=== PATIENT | female | born 1995 | race Caucasian/White ===

== ENCOUNTER 2024-01-06 15:48 | Outpatient (CLI) | payer OTHER, SELFPAY ==
[2024-01-07 13:39] LABS: Strep B DNA Probe POSITIVE (Negative)
[2024-01-07 15:28] LABS: Strep B Susceptibility Needed? No
== END 2024-01-06 15:49 | disposition home or self-care (01) ==
LOC: NFLDREF 15:48
PROVIDERS: PCP Family Medicine; Visit Provider Obstetrics & Gynecology
DX: Z34.93 Encounter for supervision of normal pregnancy, unspecified, third trimester (principal)
CPT/HCPCS: 87081; 87653

== ENCOUNTER 2024-01-29 23:28 | Inpatient (IN) | payer OTHER, BC, SELFPAY ==
[2024-01-29 22:29] VITALS: BP 130/79; PULSE 88; RESP 16; TEMP 36.8
[2024-01-29 23:03] LABS: Amnisure Rom* Negative
--- NOTE | 2024-01-29 23:23 | P.LDBA_ITS ---
Subjective History of Present Illness Time Seen by Provider: 23:23 Date Seen: 01/29/24 Narrative: Patient is being admitted to Labor and Delivery for rule out labor. She is a 28 year old at 39.4 weeks gestation. Her full history and physical was dictated by Dr. Ceron on 01/13/24. Please see this for details. She reports she thinks she has LOF around 11 am and has been anand more throughout the day so she came in for an evaluation. Amnisure was negative but per RN check she is 3/80/0. NST: 120 bpm, moderate variability, +accel, neg decl [place]: Q10-15 minutes Discussed with patient that she has made cervical change since being seen by ALFONZO Negro on 01/27/24 (1/60/-1, anterior and soft). However, she is anand very little so I do not think she is in labor yet. Gave patient option of going home and awaiting spontaneously labor or staying here for induction. Eduarda strongly desired induction. She reports that she's been uncomfortable for so long and has been requesting cervical checks since 37 weeks due to it. Was not aware she could have elective IOL after 39 weeks or would've opted. We discussed that her cervix is favorable so will start pitocin overnight to increase her contraction frequency and strength. She is happy with this plan. Specific Issues/Plans Transfer of care from [place] at 31 weeks - H&P completed at initial visit on 12/04 - heart/lungs examined at visit on 01/06/2024 Vu #Impaired glucose tolerance - 1 hour 154 > 3 hour of 79 / 156 / 156 /138 #Vulvovaginal candidiasis - 2 episodes in , last 11/16/23 labs: New OB on 07/25: - BT A+, negative antibody screen - Hemoglobin 11.5, platelets 280 - Varicella/rubella immune - RPR, hepatitis-B, HIV and gonorrhea/chlamydia negative - Pap NIL Mid labs on 11/16: - hemoglobin 11.3 - 1 hour Glucola: 154 - 3 hour glucose tolerance test: 79/156/156/138 Dating by LMP consistent with 1st trimester ultrasound Anatomy scan within normal limits aside from inability to identify three-vessel cord and some cardiac view, status post [facility] consult with repeat ultrasound confirming three-vessel cord and normal cardiac anatomy OB - Problem Based A/P Additional Plan (1) : Status: Acute Plan Induction * SVE 80/-1, soft, midposition * [place]: 10-15 minutes * Admission labs pending * Plan: will induce with titrating Pitocin OB Exam Physical Exam Vital signs: Temp Pulse Resp BP 98.2 F 88 16 130/79 01/29/24 22:29 01/29/24 22:29 01/29/24 22:29 01/29/24 22:29 Narrative: Physical exam: General: No acute distress Psych: Alert and oriented x4, full affect HEENT: Normocephalic, atraumatic Lungs: Unlabored breathing Abdomen: Gravid, soft, no tenderness, rebound, or guarding Skin: No lesions or rashes Lower extremities: No edema or erythema Pelvic exam: 80/-1, soft, mid position
[2024-01-29 23:38] VITALS: BMI 35.4
[2024-01-30] VITALS (81 sets, daily range): BP systolic 112–182; BP diastolic 63–101; PULSE 67–122; RESP 12–20; TEMP 32–37.3; O2SAT 97–100
[2024-01-30] MEDS: OXYTOCIN 30 unit/500 ML in NS 30 UNIT/500 ML BAG IVPB (00:56)
[2024-01-30] MEDS: AMPICILLIN 2 GM in 0.9 % SODIUM CHLORIDE Mini-bag 100 ML IVPB (00:57)
[2024-01-30] MEDS: LACTATED RINGERS 1000 ML 1,000 ML 125 ML IV ×2 (00:57→07:02)
[2024-01-30 03:13] LABS: Basophils Absolute Auto 0.02 K/uL (0.00-0.30); Basophils Percent Auto 0.3 % (0.0-3.0); Eosinophils Absolute Auto 0.03 K/uL (0.00-0.50); Eosinophils Percent Auto 0.4 % (0.0-7.0); Hematocrit 35.5 % (33.0-51.0); Hemoglobin* 11.9 gm/dL (12.0-16.0); Immature Granulocytes Abs Auto 0.04 K/uL (0.00-0.30); Immature Granulocytes Pct Auto 0.5 %; Lymphocytes Absolute Auto 1.49 K/uL (0.90-2.90); Lymphocytes Percent Auto 20.2 % (20-44); Mean Corpuscular HGB Conc 34 gm/dL (32-36); Mean Corpuscular Hemoglobin 30 pg (26-34); Mean Corpuscular Volume 88 fL (80-100); Monocytes Percent Auto 6.6 % (0.0-11.0); Neutrophils Absolute Auto 5.31 K/uL (1.7-7.0); Platelet Count* 256 K/uL (140-440); Red Blood Count 4.04 m/uL (4.00-5.20); White Blood Count* 7.38 K/uL (4.50-11.00)
[2024-01-30 03:22] LABS: Slide Review Reflex No
[2024-01-30] MEDS: AMPICILLIN 1 GM in 0.9 % SODIUM CHLORIDE Mini-bag 100 ML IVPB ×4 (04:21→16:41)
[2024-01-30] MEDS: ONDANSETRON 2 MG/ML inj 4 MG IV ×3 (06:25→20:46)
[2024-01-30] MEDS: ROPIVACAINE 0.2% 100 ml 100 ML 12 MG EPIDURAL ×2 (06:55→14:26)
--- NOTE | 2024-01-30 07:19 | P.ANBPRC_ITS ---
[facility] Social History What is your current living situation?: I presently have a place to live Problems where you live: no known problems In the past 12 months, utilities in danger of being shut off: no In past 12 months, lack of transportation kept you from medical appts, meetings, work, or getting things needed for daily living: no How hard is it for you to pay for the very basics like food, housing, medical care, and heating: not applicable In the past 12 mos, have been you worried that your food would run out before you had money to buy more?: never true In the past 12 mos, the food you bought just didn't last and you didn't have money to buy more?: never true Are you following a diet prescribed by a doctor: No Are you following a special diet: No Smoking Status: Never smoker Do you use any of these nicotine containing products: None Second hand tobacco smoke exposure: No How often does anyone, including family, friends and others, physically hurt you : never How often does anyone, including family, friends and others, insult or talk down to you: never How often does anyone, including family, friends and others, threaten you with harm: never How often does anyone, including family, friends and others, scream or curse at you: never Little interest or pleasure in doing things: not at all Feeling down, depressed, or hopeless: not at all Meds Home Medications and Allergies Home Medications Medication Instructions Recorded Confirmed Type Bacillus coagulans 250 million 1 cell PO DAILY 12/04/23 01/29/24 History cell chewable tablet (Digestive Advantage Probiotic Gummy) [id number] 400 mcg-om3 35 mg-dha 25 1 tab PO DAILY 12/04/23 01/29/24 History mg-epa 5 mg-fish oil chewable tablet Up & Up Immune Support 2 tab PO DAILY 12/04/23 01/29/24 History ferrous sulfate 325 mg (65 mg 325 mg PO QDAY 12/04/23 01/29/24 History iron) tablet (Feosol) vits no.126-ferrous fum 1 tab PO QDAY 01/06/24 01/29/24 History 28 mg iron-folic acid 800 mcg tablet (Classic ) Allergies Allergy/AdvReac Type Severity Reaction Status Date / Time No Known Drug Allergies Allergy Verified 01/27/24 13:31 Results Labs Labs: Laboratory Results - last 24 hr 01/29/24 01/29/24 01/30/24 22:31 22:40 02:55 WBC 7.38 RBC 4.04 Hgb 11.9 L Hct 35.5 MCV 88 MCH 30 MCHC 34 RDW Coeff of Jett 13.0 Plt Count 256 Neut % (Auto) 72.0 Lymph % (Auto) 20.2 [place] % (Auto) 6.6 Eos % (Auto) 0.4 Baso % (Auto) 0.3 Neut # (Auto) 5.31 Lymph # (Auto) 1.49 [place] # (Auto) 0.50 Eos # (Auto) 0.03 Baso # (Auto) 0.02 Abs Immat Gran (auto) 0.04 Imm/Tot Granulo (auto) 0.5 Membrane Rupture Cancelled Negative Blood Type A Positive Antibody Screen NEGATIVE Vital Signs Vital Signs: Last Vital Signs Temp 97.9 F 01/30/24 05:02 Pulse 78 01/30/24 07:18 Resp 16 01/30/24 05:02 BP 123/76 01/30/24 07:18 Pulse Ox 98 01/30/24 07:16 Weight: 82.372 kg Height: 152.4 cm Anesthesia Procedures Epidural Insertion Patient Location: OB Start Time: 06:30 Stop Time: 07:30 Start Date: 01/30/24 Stop Date: 01/30/24 Reason for Block: procedure for pain Patient Position: sitting Performed By: Caleb Garcia Preanesthetic Checklist: IV checked, risks and benefits discussed, surgical consent, monitors and equipment checked, pre-op evaluation, timeout performed and anesthesia consent Prep: chlorhexidine gluconate Monitoring: blood pressure monitoring, continuous pulse oximetry and heart rate Approach: midline Vertebral Space: lumbar (1-5) Epidural Technique: EARLINE saline Needle Type: Tuohy needle Injection Technique: continuous catheter Needle gauge: 17 Needle Length (cm): 10 cm Needle Insertion Depth (cm): 6 Catheter Gauge: 19 Catheter Type: multi-orifice Catheter at skin depth (cm): 12 Test Dose Result: negative and lidocaine 1.5% with epinephrine 1 to 200,000
[2024-01-30] MEDS: LACTATED RINGERS 1000 ML 1,000 ML 124 ML IV ×2 (08:19→16:52)
--- NOTE | 2024-01-30 10:32 | P.OBPN_ITS ---
Subjective Date Seen: 01/30/24 Narrative: Eduarda is a 28 yo woman at 39 4/7 weeks' gestation here for elective IOL. She had been on pitocin for augmentation since early AM, currently at 13 mU/min. She had an epidural this morning. She is GBS positive, and has been on ampicillin since admission. Objective Vital Signs: Last Vital Signs Temp 89.6 F L 01/30/24 07:24 Pulse 75 01/30/24 10:26 Resp 16 01/30/24 07:24 BP 126/80 01/30/24 10:26 Pulse Ox 98 01/30/24 07:21 Comments: Gen - NAD Abd - EFW 8 lbs by Ronaldo's SVE - / - AROM for clear fluid Pelvic Exam Dilation (cm): 6 Effacement (%): 90 Station: -2 Contractions Monitor mode: External Contraction Frequency: Q2-4 min Contraction pattern: Regular Pitocin Rate (mU/min): 13 Assessment Assessment: active labor Amniotic Membrane Status: AROM Status: Category l Heart Rate Baseline: 120 Residential Variability: Moderate (6-25) Monitor Accelerations: Present Monitor Decelerations: None Tracing Comments: Category I Labor Progress: Active labor Maternal Status: Reassuring status GBS positive, on ampicillin Plan Plan: Continuous monitoring Continue pitocin augmentation Reassess 2 hrs or sooner
--- NOTE | 2024-01-30 14:44 | P.OBPN_ITS ---
Subjective Time Seen by Provider: 13:30 Date Seen: 01/30/24 Narrative: Eduarda is a 28 yo woman at 39 4/7 weeks' gestation here for elective IOL. She had been on pitocin for augmentation since early AM, currently at 13 mU/min. She had an epidural this morning. She is GBS positive, and has been on ampicillin since admission. She is having increased pain with contractions. Objective Vital Signs: Last Vital Signs Temp 97.8 F 01/30/24 12:00 Pulse 79 01/30/24 14:42 Resp 16 01/30/24 12:00 BP 146/82 H 01/30/24 14:42 Pulse Ox 98 01/30/24 07:21 Comments: Gen - NAD SVE - 7.5 / 100 / -1 Contractions Monitor mode: External Contraction Frequency: Q2-4 min Contraction pattern: Regular Pitocin Rate (mU/min): 22 Assessment Assessment: active labor Amniotic Membrane Status: AROM Status: Category l Heart Rate Baseline: 120 Front End Application Developer Variability: Moderate (6-25) Monitor Accelerations: Present Monitor Decelerations: None Tracing Comments: Category I Labor Progress: Active labor, transitional phase Maternal Status: Reassuring status GBS positive, on ampicillin Plan Plan: Continuous monitoring Continue pitocin augmentation Reassess 2 hrs or sooner
--- NOTE | 2024-01-30 15:01 | P.OBPN_ITS ---
Subjective Time Seen by Provider: 13:30 Date Seen: 01/30/24 Narrative: Eduarda is a 28 yo woman at 39 4/7 weeks' gestation here for elective IOL. She had been on pitocin for augmentation since early AM, currently at 22 mU/min. She had an epidural this morning. She is GBS positive, and has been on ampicillin since admission. She is having pelvic pressure and vomiting. Objective Vital Signs: Last Vital Signs Temp 97.8 F 01/30/24 12:00 Pulse 90 01/30/24 14:56 Resp 16 01/30/24 12:00 BP 149/89 H 01/30/24 14:56 Pulse Ox 98 01/30/24 07:21 Comments: Gen - NAD SVE -rim / 100 / +1.5, TRACY Contractions Monitor mode: External Contraction Frequency: Q2-4 min Contraction pattern: Regular Pitocin Rate (mU/min): 22 Assessment Assessment: active labor Amniotic Membrane Status: AROM Status: Category l Heart Rate Baseline: 120 Rubber Goods Tester Water Variability: Moderate (6-25) Monitor Accelerations: Present Monitor Decelerations: None Tracing Comments: Category I Labor Progress: Active labor, transitional phase. Progressing normally. Maternal Status: Reassuring status GBS positive, on ampicillin Plan Plan: Continuous monitoring Continue pitocin augmentation Reassess within the hour for urge to push.
[2024-01-30 16:53] LABS: Basophils Percent Auto 0.1 % (0.0-3.0); Hematocrit 39.7 % (33.0-51.0); Hemoglobin* 13.3 gm/dL (12.0-16.0); Immature Granulocytes Pct Auto 0.6 %; Lymphocytes Percent Auto 6.5 % (20-44); Mean Corpuscular HGB Conc 34 gm/dL (32-36); Mean Corpuscular Hemoglobin 29 pg (26-34); Mean Corpuscular Volume 87 fL (80-100); Monocytes Percent Auto 5.1 % (0.0-11.0); Neutrophils Percent Auto 87.7 % (42.0-72.0); Platelet Count* 255 K/uL (140-440); RDW Coefficient of Variation % 12.9 % (11.5-15.5); Red Blood Count 4.57 m/uL (4.00-5.20); White Blood Count* 16.02 K/uL (4.50-11.00)
[2024-01-30 16:56] LABS: Slide Review Reflex No
[2024-01-30 17:09] LABS: Alanine Aminotransferase* 29 U/L (4-35); Aspartate Amino Transferase* 31 U/L (12-35); Blood Urea Nitrogen* 8 mg/dL (5-24); Creatinine* 0.5 mg/dL (0.5-1.5); Est. Creatinine Clearance* 120.32; Estimated Glomerular Filt Rate 131 ml/min
[2024-01-30] MEDS: miSOPROStoL 800 MCG/4 TABLET PR (19:40)
[2024-01-30] MEDS: LOPERAMIDE HCL 2 MG CAPSULE 4 MG PO (19:53)
[2024-01-30] MEDS: TRANEXAMIC ACID 100 MG/ML INJ 1000 MG IV (19:54)
--- NOTE | 2024-01-30 19:56 | W.PM.VAGDEL1 ---
Procedure Delivery date: 01/30/24 Procedure Done: [employer] Procedure Details: The patient is a 28 year-old G 1 P 0 woman admitted on 01/30/2024 at 39 Weeks, 3 Days gestation for elective induction of labor.? Cervical exam on admission was 3 cm/80 % effaced/-1 station with membranes intact in cephalic presentation.? heart rate demonstrated baseline 120 bpm with moderate variability, positive accelerations, no decelerations; a category 1 tracing.? She had Pitocin for induction of labor. AROM occurred at 10:22 a.m. with clear fluid. ? Labor Analgesia:? Epidural Labor onset:? 8:20 a.m. ? Complete:? 4:37 p.m. ? Pushing:? 4:54 p.m. ? heart tones during second stage were reassuring with only intermittent brief variable deceleration until the infant was , at which point there were prolonged, deep variable decelerations. Eduarda did develop mildly elevated blood pressures during active labor. HELLP labs were normal. ? At 7:20 p.m. a viable male infant delivered in vertex AZIZA presentation over small second-degree perineal laceration via spontaneous vaginal delivery.? was placed on maternal abdomen.? Cord was clamped and cut after a 30-60 second delay.? Nose and mouth were bulb suctioned.? weight pending.? 3 at 1 minute, 7 at 5 minutes and 9 at 10 minutes.? did require PPV for short period. Shoulder dystocia: No.? Nuchal cord: Yes, x1, reduced prior to delivery the 's body. ? Placenta delivered spontaneously and complete at 7:33 p.m. with a 3 vessel cord. ? Mother and infant were stable after delivery. ? Lacerations:? Small second-degree perineal laceration and bilateral labial laceration, repaired with 2 0 and 3 0 Vicryl after infiltration with a small amount of 1% lidocaine. ? She went on to have an immediate hemorrhage of 931 mL by QBL. She was treated with IV Pitocin, uterine massage, 800 mcg of rectal misoprostol, and a single dose of Hemabate. ? Sponge and needles counts are correct.
[2024-01-30] MEDS: CARBOPROST TROMETHAMINE 250 MCG/ML INJ IM (20:37)
[2024-01-30] MEDS: ACETAMINOPHEN 500 MG TABLET 1000 MG PO (20:38)
[2024-01-31] VITALS (7 sets, daily range): BP systolic 113–144; BP diastolic 73–86; PULSE 82–95; RESP 12–16; TEMP 36.6–36.9; O2SAT 97
[2024-01-31] MEDS: IBUPROFEN 600 MG TABLET PO ×3 (00:51→13:19)
--- NOTE | 2024-01-31 04:00 | PM.ANPOST ---
Post Anesthesia Note Post Anesthesia Note Patient seen: Inpatient Respiratory Status: adequate Cardiovascular Status: adequate Mental Status: baseline Pain: adequate Temp: baseline Anesthetic awareness: N/A Complications: none Follow care: none
[2024-01-31] MEDS: ACETAMINOPHEN 500 MG TABLET 1000 MG PO ×3 (04:42→23:57)
[2024-01-31 07:11] LABS: Hematocrit 32.5 % (33.0-51.0); Hemoglobin* 10.9 gm/dL (12.0-16.0); Mean Corpuscular HGB Conc 34 gm/dL (32-36); Mean Corpuscular Hemoglobin 30 pg (26-34); Mean Corpuscular Volume 88 fL (80-100); Platelet Count* 278 K/uL (140-440); Red Blood Count 3.68 m/uL (4.00-5.20); White Blood Count* 16.39 K/uL (4.50-11.00)
[2024-01-31 07:18] LABS: Slide Review Reflex No
[2024-01-31 07:23] LABS: Alanine Aminotransferase* 29 U/L (4-35); Aspartate Amino Transferase* 45 U/L (12-35); Blood Urea Nitrogen* 11 mg/dL (5-24); Creatinine* 0.6 mg/dL (0.5-1.5); Est. Creatinine Clearance* 100.27; Estimated Glomerular Filt Rate 125 ml/min
[2024-01-31] MEDS: DOCUSATE SODIUM 100 MG CAPSULE PO (08:19)
--- NOTE | 2024-01-31 09:02 | PM.OBPNVD1 ---
OB - PN:Subj Subjective Date Seen: 01/31/24 Interval history: Eduarda is a 28-year-old G1 now P 1-0-0-1 woman who is status post normal spontaneous vaginal delivery at term on 01/30/2024. She had small second-degree perineal laceration and bilateral labial lacerations. She had an immediate hemorrhage, successfully managed with uterotonics. She is diagnosed with mild gestational hypertension during her intrapartum course. She has been normotensive since shortly after the of her son. Narrative: This morning, Eduarda has no complaints. She is working on her son. She denies any heavy bleeding. Pain is well controlled. OB - PN: Obj Exam Physical Exam: Vital signs: Temp Pulse Resp BP Pulse Ox O2 Del Method 97.9 F 84 16 121/78 97 Room Air 01/31/24 08:26 01/31/24 08:26 01/31/24 08:26 01/31/24 08:26 01/31/24 08:26 01/31/24 08:26 Blood pressures have normalized since shortly after the of her son. Narrative: General: Pleasant, no acute distress Heart: Regular rate and rhythm, no murmur or gallop Lungs: Clear to auscultation bilaterally Abdomen: Soft, nontender, fundus well below umbilicus Lower extremities: No edema or erythema OB - PN: Obj Data Labs Labs: Laboratory Results - last 24 hr 01/30/24 01/31/24 16:48 06:30 WBC 16.02 H 16.39 H RBC 4.57 3.68 L Hgb 13.3 10.9 L Hct 39.7 32.5 L MCV 87 88 MCH 29 30 MCHC 34 34 RDW Coeff of Jett 12.9 Plt Count 255 278 Neut % (Auto) 87.7 H Lymph % (Auto) 6.5 L Patrick % (Auto) 5.1 Eos % (Auto) 0.0 Baso % (Auto) 0.1 Neut # (Auto) 14.00 H Lymph # (Auto) 1.00 Patrick # (Auto) 0.80 Eos # (Auto) 0.00 Baso # (Auto) 0.00 Abs Immat Gran (auto) 0.10 Imm/Tot Granulo (auto) 0.6 BUN 8 11 Creatinine 0.5 0.6 Estimated Creat Clear 120.32 100.27 Estimated GFR 131 125 AST 31 45 H ALT 29 29 OB - PN: A/P Delivery Assessment and Plan (1) Normal spontaneous vaginal delivery: Status: Acute (2) hemorrhage: Status: Acute Assessment and Plan: With subsequent mild anemia. Blood loss currently within normal ranges. Anemia is quite mild. We will begin ferrous sulfate. (3) Anemia associated with acute blood loss: Status: Acute (4) Gestational hypertension: Status: Acute Assessment and Plan: Without severe features, developing intrapartum. Her AST is mildly elevated today, but her blood pressures have normalized since shortly after the of her son last night. She will stay inpatient until tomorrow, and we will continue to monitor her blood pressures. Plan day: 1 Plan: routine care
[2024-01-31] MEDS: FERROUS SULFATE 325 MG TABLET 650 MG PO (13:19)
[2024-01-31 14:23] LABS: Rapid Plasma Reagin (RPR) Non Reactive (Non Reactive)
[2024-02-01 00:05] VITALS: BP 118/80; PULSE 84; RESP 12; TEMP 36.6
--- NOTE | 2024-02-01 08:04 | PM.OBDSVD1 ---
DS: Providers Provider Date Seen: 02/01/24 Date of admission: 01/29/24 23:28 Primary care physician: Christiano Khoury MD Admitting Clinician: Yesi Pop MD Consults: 01/31/24 13:48 Consult to Dispatcher Chief [employer] [CONS] Routine Comment: RN concerned for financial status of mom and dad. Reason for Consult:: Social Service Consult Attending Physician on discharge: Ping Negro CNM DS: Diagnosis Discharge Diagnosis (1) Gestational hypertension: Status: Acute (2) Normal spontaneous vaginal delivery: Status: Acute Exam Narrative: Exam Narrative: GENERAL APPEARANCE:? normal affect, alert, no distress MOOD:? appropriate CHEST:? clear to auscultation HEART:? regular rate and rhythm ABDOMEN:? soft, non-tender the uterine fundus is at Umbilicus, Midline and is appropriate for the stage of recovery. PERINEUM:? mild edema of the perineum, there is a Perineal Laceration,?2nd degree, that is healing well. EXTREMITIES:? normal and no edema Const: Vital Signs, click to edit/add: Vital Signs - 24 hr 01/31/24 08:26 01/31/24 13:23 01/31/24 15:02 Temperature 97.9 F 97.8 F Pulse Rate [Blood Pressure Cuff] 84 84 84 Respiratory Rate 16 16 Blood Pressure [Le ft Arm] 121/78 117/81 113/76 Pulse Oximetry 97 97 Oxygen Delivery Me thod Room Air 01/31/24 18:20 01/31/24 19:37 02/01/24 00:05 Temperature 97.9 F 98.3 F 97.8 F Pulse Rate [Blood Pressure Cuff] 82 84 84 Respiratory Rate 16 16 12 Blood Pressure [Le ft Arm] 123/85 144/86 H 118/80 Pulse Oximetry Oxygen Delivery Me thod Room Air Documenting provider has reviewed patient's vital signs: yes OB - DS: Summary Hospital Course Hospital Course: Eduarda is a 28 y.o. G 1 P 1 who was admitted to [facility] for induction of labor. ?She had a NVD that was complicated by hemorrhage. The patient feels well. ?The pain is well controlled with current medications. ?She has no new complaints. ?She is breast feeding and reports things are going well. the patient has done well.? Vitals have been stable.? She has remained afebrile.? Has a good appetite, is tolerating a general diet. ?She is voiding without difficulty.? She is passing gas and has not had a bowel movement.? She is ambulating and denies any dizziness.? Has small amount of rubra lochia. She is not sure their plan for prevention. Problems: mild anemia plan: Discharge home with baby. Follow up in 2 weeks and 6 weeks. , may see if needed Hgb 10.9. Continue home iron supplement GHTN diagnosed by elevated BP greater than 4 hours apart Labs WNL or stable with trending Discharge home with BP cuff if does not already have one Follow up in 3-5 days Call for signs/symptoms of preeclampsia Peripartum Data delivery method: Vaginal Laceration description: Perineal - 2nd Degree complications: none [place] Gender: Male Discharge Plan: Home Status at Discharge Functional status at discharge: independent ambulation Overall status at discharge: patient is progressing back to baseline Time Spent with Patient Time attestation: Total time spent providing and/or coordinating discharge services: Time spent: Less than 30 minutes Discharge Plan Discharge Disposition: Home, Self-Care Date of Admission: 01/29/24 23:28 Attending Provider on Discharge: Ping Negro Primary Care Provider: Christiano Khoury Condition: Stable Anticipated Discharge Date/Time: 02/01/24 12:00 Discharge Medications: New acetaminophen 500 mg Tablet 1,000 mg PO Q6H PRNQty: 0 0RF docusate sodium 100 mg Capsule 100 mg PO DAILY Qty: 90 0RF ibuprofen 600 mg Tablet 600 mg PO Q6H PRNQty: 60 0RF Continued [id number]-[id number]-aayb oil 400 mcg-35 mg -25 mg-5 mg tablet,chewable 1 tab PO DAILY Digestive Advantage Prob Gummy 250 million cell tablet,chewable 1 cell PO DAILY ferrous sulfate [Feosol] 325 mg (65 mg iron) tablet 325 mg PO QDAY Up & Up Immune Support capsule 2 tab PO DAILY Patient Comments: Gummies Classic 28 mg iron- 800 mcg tablet 1 tab PO QDAY Discharge Orders: Discharge Order (Routine); Ordered 02/01/24 Ordered By: Ping Negro Patient Education: OB High Blood Pressure DC, OB Over the Counter Medication Information, OB Vaginal/Breast Feeding Additional Instructions: Discharge instructions were reviewed with the patient including signs and symptoms of infection and home going medications Nothing vaginally for 6 weeks: no tampons or intercourse Off Work or School for 6 weeks Follow Up [facility] for a BP check?3-5 Call with BP greater than or equal to 160/110 2-week visit: discuss feeding concerns, review control options and screen for anxiety/depression. 6-week visit for an annual exam. consultation services are available to all mothers and babies for the first year after delivery.? To make an appointment, please call [phone]. Activity Level: Activity as Tolerated Discharge Diet: Regular Follow Up Appointments: [facility] [Provider Group] Forms: [employer] Info Instructions
[2024-02-01] MEDS: DOCUSATE SODIUM 100 MG CAPSULE PO (08:38)
[2024-02-01 08:39] VITALS: BP 121/79; PULSE 84; RESP 16; TEMP 36.3
--- NOTE | 2024-02-01 12:05 | PC.SOCIAL ---
Received a social work referral. Met with pt in room prior to discharge. Pt has stable housing, she reports she lives with her parents in a house in [place]. Pt reports that her significant other also resides with her. Pt reports she has a supportive family. Pt's mother is a [id number] mom and will assist pt with childcare at any time. Pt plans to return back to work full-time after her maternity leave is completed. Pt reports when she returns back to work pt's mother will assist with childcare. Pt has no concerns for financial assistance and is aware of area resources for [facility] if a financial concern were to arise. Pt has been in contact with [facility] office, prior to giving . Pt's income did not meet criteria to qualify for [facility] services, however, [facility] did ask pt to come back after giving as she will qualify due to not being able to work during her maternity leave. Pt is aware of where to reach out to get the [place] services started and will do so when she is discharged from [facility]. Pt reports that she has all needed baby items at home including a car seat and safe bed for baby to sleep in. Informed pt that she can reach out to social work if she has any further questions. Provided update to pt's nurse.
== END 2024-02-01 14:30 | disposition home or self-care (01) | DRG 806 ==
LOC: OB OUT 23:29 → OB 23:29
PROVIDERS: Obstetrics & Gynecology; Admitting Provider Obstetrics & Gynecology; PCP Family Medicine; Visit Provider Obstetrics & Gynecology
DX: O70.1 Second degree perineal laceration during delivery (principal); O72.1 Other immediate postpartum hemorrhage; Z37.0 Single live birth; Z3A.39 39 weeks gestation of pregnancy; O13.4 Gestational [pregnancy-induced] hypertension without significant proteinuria, complicating childbirth; O99.824 Streptococcus B carrier state complicating childbirth; O90.81 Anemia of the puerperium
CPT/HCPCS: 01967; 36415; 82565; 84112; 84450; 84460; 84520; 85025; 85027; 86592; 86850; 86900; 86901; 88307; A9270; J0290; J0665; J2371; J2405; J2795; J7120

== ENCOUNTER 2024-02-09 16:39 | Outpatient (CLI) | payer OTHER, BC, SELFPAY | END 2024-02-09 16:40 | disposition home or self-care (01) | LOC: NFLDREF 16:41 | PROVIDERS: PCP Family Medicine; Visit Provider Registered Nurse | DX: R39.15 Urgency of urination (principal) | CPT/HCPCS: 87086 ==

== ENCOUNTER 2024-02-10 14:37 | Outpatient (CLI) | payer OTHER, BC, SELFPAY ==
--- NOTE | 2024-02-10 17:00 | P.LACCB_ITS ---
Consult Note - Mom Date of Visit Date of visit: 02/10/24 taxation consultant: Jazmine Burch Visit Code: Visit Patient's Information Phone number: [phone] : 1 Para: 1 Allergies No Known Drug Allergies Allergy (Verified 02/09/24 16:07) Mother's Medical History: Medical History (Updated 02/09/24 @ 19:25 by Trini Larsen CNP) hemorrhage ?O72.1 - Other immediate hemorrhage (ICD-10) Delivery Information Delivery type: Vaginal Weeks Gestation: 39.4 Gestational Age: AGA Weight: 3.585 kg Discharge Weight: 3.45 kg Baby's Information Baby's Age at Visit: 2 weeks Baby's Provider or Clinic: Dr. Shaw Reason for Consult Reason for Consult: slow weight gain Past Experience Past Experience: No Current Frequency of Day Feedings: every 2 - 3 hours Frequency of Night Feedings: about every 4 hours Both Breasts: Yes Suck: strong Length of Time: about 20 minutes Pumping Pumping: No (hasn't pumped since the weekend) Supplementing EMB Supplement: No Formula Supplement: Yes (2 oz after every feeding) Baby Elimination Number of Wet Diapers a Day: 6 - 8 diapes in 24 hours Number of BM a Day: 4 - 6 in 24 hours Breast/Nipple Condition Breast Information: WNL Maternal Nipple Condition - Left: Common Nipple Maternal Nipple Condition - Right: Common Nipple Onsite Pre-Feed weight: 3.748 kg Post-Feed weight: 3.764 kg Milk Transferred (mL): 16 Assessments/Interventions Assessments/Interventions: Met with mom and this now 2 week old ex- term AGA baby for consult. Mom reports baby has been slow to gain weight and at the NB visit last week the doctor suggested she start supplementing after nursing. Mom reports that baby is nursing every 2 ? 3 hours during the day and about every 4 hours overnight. She offers both sides and feedings last about 20 minutes total. She stopped pumping over the weekend and has been supplementing with 2 oz formula after every feeding. When she was pumping it was BID and she got about 3 oz total each time. Breasts WNL- symmetrical with rounded lower quadrants, intramammary distance < 1.5 inches. Nipples are everted and don?t flatten or retract on compression. Mom reports a hx of blistering on her left nipple that has resolved. Baby has gained 32 grams/day since his last visit on 02/07 and is now 163 grams (5.4 oz) over BW at 2 weeks old. Mom denies any caput/cephalohematoma at delivery and state baby has equal ROM when turning his head/moving his extremities. Palate is a little high. The upper and lower frenulum appear to be WNL. Baby has a strong suck on a finger but the tongue doesn?t extend over the gumline consistently and there?s quite a bit of canoeing when the tongue lateralizes. Mom latched baby in the cross cradle position on the left side and the latch looked shallow even though mom said it was comfortable. She unlatched baby and was coached to bring baby closer to her in a tummy to tummy position. Suggested she aim his nose to her nipple and when he opened wide to bring him to her more quickly. Trying this, she reported a deeper latch. Baby wasn?t aggressive at the breast despite bothering him and trying breast compressions. After about 10 minutes he came off and mom offered the right side. Per mom he was pacifying more than nutritively suckling on this side and when he came off he had only transferred 16 ml. Mom was measured and a flange size suggested. Also demonstrated the tug of war exercise to hopefully teach him to extend his tongue out more consistently. Plan: 1.Continue nursing baby ALD or at least every 3 ? 4 hours. Offer both sides and work to get as deep a latch as possible. Keep trying the breast compressions and she can even do a tug of war when he?s at the breast if that gets him to nurse more aggressively (don?t pull so far out that the latch becomes shallow). 2.After a more aggressive nursing session, if he seems content there?s no need to supplement. After nursing sessions that are more pacifying (like in clinic today) it will be important to supplement. 3.Encouraged mom to start pumping again as this will help her keep her milk supply for longer. It will also allow her to reduce the amount of formula she uses for supplementation. Encouraged her to try and pump at least 4 times/day. 4.Try the tug of war exercise 4 ? 5 times/day. 5. Baby has f/u with PCP on 02/14 and I will f/u by phone on 02/16. Meds Home Medications and Allergies Home Medications Medication Instructions Recorded Confirmed Type Bacillus coagulans 250 million 1 cell PO DAILY 12/04/23 02/09/24 History cell chewable tablet (Digestive Advantage Probiotic Gummy) TDM15-VN 400 mcg-om3 35 mg-dha 25 1 tab PO DAILY 12/04/23 02/09/24 History mg-epa 5 mg-fish oil chewable tablet Up & Up Immune Support 2 tab PO DAILY 12/04/23 02/09/24 History ferrous sulfate 325 mg (65 mg 325 mg PO QDAY 12/04/23 02/09/24 History iron) tablet (Feosol) vits no.126-ferrous fum 1 tab PO QDAY 01/06/24 02/09/24 History 28 mg iron-folic acid 800 mcg tablet (Classic ) Allergies Allergy/AdvReac Type Severity Reaction Status Date / Time No Known Drug Allergies Allergy Verified 02/09/24 16:07
== END 2024-02-10 14:38 | disposition home or self-care (01) ==
LOC: OB LAC 14:38
PROVIDERS: PCP Family Medicine; Visit Provider Family Medicine
DX: Z39.1 Encounter for care and examination of lactating mother (principal)
CPT/HCPCS: G0463

== ENCOUNTER 2024-03-02 08:41 | Outpatient (CLI) | payer BC, SELFPAY ==
--- NOTE | 2024-03-02 10:15 | US_ITS ---
Patient: YNAI MERRITT Facility:?[facility] Patient ID:?[id number] Site Patient ID:?[id number]. Site :?[id number] Study:?US-Pelvis TRANSVAGINAL-03/02/2024 10:14:27 AM Ordering Physician:?HONORIO CORRAL Final Report: Indication: hemorrhage Technique: Ultrasound examination of the pelvis was performed. Imaging was performed transvaginally. Comparison: None Findings: The uterus measures 9.7 x 5.2 x 6.5 centimeters. There are 2 myometrial masses. One measures 2.6 x 2.5 x 2.7 centimeters. Another measures 1.2 x 1.5 x 1.5 centimeters. The larger myoma is hypoechoic suggesting necrosis. The right ovary measures 2.8 x 1.5 x 2.0 centimeters and the left ovary measures 3.4 x 2.6 x 2.7 centimeters. No ovarian mass. No adnexal mass. Normal ovarian Doppler without indication of torsion The endometrium is focally thickened especially towards the fundus measuring 1.6 centimeters. The endometrium is heterogeneous in this area and there is visible Doppler flow suggesting retained products of conception. Impression: Findings likely related to retained products of conception. Myomatous uterus. Normal ovaries and adnexa. Dictated by Murphy Palafox MD @ 03/02/2024 10:23:51 AM Signed by:?Murphy Palafox MD @03/02/2024 10:23:51 AM (Electronic Signature)
== END 2024-03-02 08:42 | disposition home or self-care (01) ==
PROVIDERS: PCP Family Medicine; Visit Provider Obstetrics & Gynecology
DX: O72.1 Other immediate postpartum hemorrhage (principal)
CPT/HCPCS: 76830; 86850; 86900; 86901

== ENCOUNTER 2024-03-03 11:57 | Day surgery (SDC) | payer BC, SELFPAY ==
[2024-03-03 11:10] VITALS: BMI 31.4
--- OUTSIDE RECORDS SUMMARY | 2024-03-03 11:59 | XMS_ITS | Referral Summary ---
Author Name Unknown Organization [facility] Address [address] [place] [address] Care Team Providers Care Milieu Coordinator Name Role Phone Unavailable Primary Care Provider Unavailabl e Source Comments Patient records contain information from all sites at [facility]. For routine questions regarding patient records, call [phone] during business hours, M-F 8:00 AM - 5:00 PM Central Time. Record requests for emergency care only can be directed to [phone] at any time.[facility] Allergies No known active allergies Medications Medication Sig Dispensed Refills Start Date End Date Status kwserlx-Mw-nwim-FA (VINATE ONE) 60 mg iron-1 mg per tablet Take 1 tablet by mouth daily. 90 tablet 3 08/20/2023 Active miconazole (MICOTIN) 2 % vaginal cream Insert 1 applicator into the vagina at bedtime. 45 g 11/16/2023 Active Active Problems Estimated Date of Delivery Comme nts Yes 02/02/2024 Based on last me nstrual period of 04/28/2023 (Exact Date) No known active problems Immunizations Name Administration Dates Next Due Tdap 11/16/2023 Social History Tobacco Use Types Packs/Day Years Used Date Smoking Tobacco: Never Smokeless Tobacco: Never Tobacco Cessation:Counseling Given: Not Answered Alcohol Use Standard Drinks/Week Comments Not Currently 0 (1 standard drink = 0.6 oz pur e alcohol) Humiliation, Afraid, Rape, and Kick questionnair e Answer Date Recorded Within the last year, have y ou been afraid of your partner or ex-partner? No 06/21/2023 Within the last year, have y ou been humiliated or emotionally abused in other ways by your partner or ex-partner? No Within the last year, have y ou been kicked, hit, slapped, or otherwise physically hurt by your partner or ex-partner? No 06/21/2023 Within the last year, have y ou been raped or forced to have any kind of sexual activity by your partner or ex-partner? No 06/21/2023 Overall Financial Resource Strain (CARDIA) Answe r Date Recorded How hard is it for you to pa y for the very basics like food, housing, medical care, and heating? Not hard at all 06/21/2023 PHQ-2 Answer Date Recorded PHQ-2 Score 1 07/22/2023 Exercise Vital Sign Answer Date Recorde d On average, how many days pe r week do you engage in moderate to strenuous exercise (like a brisk walk)? 4 days 06/21/2023 On average, how many minutes do you engage in exercise at this level? 30 min 06/21/2023 Hunger Vital Sign Answer Date Recorded Within the past 12 months, y ou worried that your food would run out before you got the money to buy more. Never true 06/21/20 Within the past 12 months, t he food you bought just didn't last and you didn't have money to get more. Never true 06/21/2023 PRAPARE - Transportation Answer Date Re corded In the past 12 months, has l ack of transportation kept you from medical appointments or from getting medications? No 05/27 In the past 12 months, has l ack of transportation kept you from meetings, work, or from getting things needed for daily living? No 06/21/2023 Depression Answer Date Recor ded PHQ-9 Total Score (max 27) 3 07/22 Nutrition Answer Date Recorded Nutrition: EVOO Fat Source Unknown 06/21 On average, how many serving s of fruits and vegetables do you eat per day (serving size is equal to 1 cup or approximately the size of a tennis ball)? 0-2 06/21/2023 Dental Answer Date Recorded Dental: Regular Dentist Yes 06/21/20 Employment Answer Date Recorded Employment status Employed and actively working without restrictions 06/21/2023 Housing Stability Answer Date Recorded What is your living situation today? I have a [facility] place to live 06/21/2023 Education Answer Date Recorded What is the highest level of school you have completed or the highest degree you have received? High school graduate 07/22/2023 Estimated Date of Delivery Comme nts Yes 02/02/2024 Based on last me nstrual period of 04/28/2023 (Exact Date) Sex and Gender Information Value Date Recorded Sex Assigned at Female 06/21/2023 8:16 PM CDT Gender Identity Female 06/21/2023 8:16 PM CDT Sexual Orientation Straight 06/21/2023 8: 16 PM CDT Last Filed Vital Signs Vital Sign Reading Time Taken Comments Blood Pressure 122/83 11/16/2023 3:23 PM ICE MAKER Pulse 93 11/16/2023 3:23 PM ICE MAKER Temperature 37.2 ??C (99 ??F) 08/20/2023 3:06 PM CDT Respiratory Rate - - Oxygen Saturation 100% 10/16/2023 2:09 PM ICE MAKER Inhaled Oxygen Concentration - - Weight 76.9 kg (169 lb 8 oz) 11/16/2023 3:23 PM ICE MAKER Height 156 cm (5' 1.42) 11/16/2023 3:23 PM ICE MAKER Body Mass Index 31.59 11/16/2023 3:23 PM ICE MAKER Plan of Treatment Not on file Procedures Procedure Name Priority Date/Time Associated Diagnosis Comments HCV AB SCRN , S Routine 07/22/2023 10:41 AM CDT Examination Normal First First Trimester (HCC) HIV-1/-2 AG AND AB SCRN, PLASMA Routine 07/22/2023 10:41 AM CDT Examination Normal First First Trimester (HCC) THINPREP SCREEN HPV REFLEX Routine 07/22/2023 9:43 AM CDT Examination Normal First First Trimester (HCC) from Last 3 Months or Most Recently Relevant to Health Maintenance Results * Hepatitis C Virus Antibody Screen (07/22/2023 10:41 AM CDT) HCV Ab Scrn , S Negative Negative 07/23/2023 8:34 AM CDT [facility] Comment:Oalfqy-mx-nbixhl rat io is <1.00. Blood (Blood, Venous) 07/22/2023 10:41 AM CDT 07/23/2023 6:54 AM CDT Kary Holguin APRN, C.N.P., M.S.N. LAB MICROBIOLOGY - BLOOD ORDERABLES [facility] [address] [place] [address] [facility] [address] [place] [address] * HIV-1/-2 Ag and Ab Scrn, Plasma (07/22/2023 10:41 AM CDT) HIV Ag/Ab Scrn, P Negative Negative 07/23/2023 4:25 AM CDT [facility] Comment: Negative result does not rule out HIV infection. If exposure to HIV infection occurred <14 days ago, contact the laboratory to request addition of HIV-1/HIV-2 RNA detection , Plasma (HPP12). HIV-1 p24 Ag Scrn, P Negative Negative 07/23/2023 4:25 AM CDT [facility] Comment: Negative result does not rule out HIV infection. If exposure to HIV infection occurred <14 days ago, contact the laboratory to request addition of HIV-1/HIV-2 RNA detection , Plasma (HPP12). HIV-1 Ab Scrn, P Negative Negative 07/23/2023 4:25 AM CDT [facility] Comment: Negative result does not rule out HIV infection. If exposure to HIV infection occurred <14 days ago, contact the laboratory to request addition of HIV-1/HIV-2 RNA detection , Plasma (HPP12). HIV-2 Ab Scrn, P Negative Negative 07/23/2023 4:25 AM CDT [facility] Comment: Negative result does not rule out HIV infection. If exposure to HIV infection occurred <14 days ago, contact the laboratory to request addition of HIV-1/HIV-2 RNA detection , Plasma (HPP12). Blood (Blood, Venous) 07/22/2023 10:41 AM CDT 07/22/2023 6:24 PM CDT Kary Holguin APRN, C.N.P., M.S.N. LAB MICROBIOLOGY - BLOOD ORDERABLES Performing Organization Address [facility] Co de Phone Number [facility] [address] [place] [address], [place] [facility] [place] [address] [place] [address] * ThinPrep Screen HPV Reflex (07/22/2023 9:43 AM CDT) 07/24/2023 3:25 PM CDT [facility] Report electronically signed by JESUS Alfonso (ASCP) I verify that I have examined all relevant slides/materials for the specimen(s) and rendered or confirmed the diagnosis. 07/24/2023 3:25 PM CDT [facility] Gross Description Received specimen in a ThinPrep vial. 07/24/2023 3:25 PM CDT [facility] Pap Test Source Cervical/Endocervi lucila 07/24/2023 3:25 PM CDT [facility] Hormone Therapy/Contracep tives None/Not known 07/24/2023 3:25 PM CDT [facility] Interpretation Cervical/Endocervi lucila ??(ThinPrep): Satisfactory for Evaluation Negative for Intraepithelial Lesion or Malignancy 07/24/2023 3:25 PM CDT [facility] Thin Prep Vial (Cervix/Endocerv ix) 07/22/2023 9:43 AM CDT 07/23/2023 6:25 AM CDT Kary Holguin APRN, C.N.P., M.S.N. LAB PAP PATHDX ORDERABLES Performing Organization Address City/[facility]/ZIP Co de Phone Number [facility] [address] [place] [address], [place] [facility] [address] [address] from Last 3 Months or Most Recently Relevant to Health Maintenance
--- OUTSIDE RECORDS SUMMARY | 2024-03-03 11:59 | XMS_ITS | Clinical Summary ---
Author Name Unknown Organization [facility] Address [address] [place] [address] Care Team Providers Care Transfer Station Operator Name Role Phone Unavailable Primary Care Provider Unavailabl e Source Comments Patient records contain information from all sites at [facility]. For routine questions regarding patient records, call [phone] during business hours, M-F 8:00 AM - 5:00 PM Central Time. Record requests for emergency care only can be directed to [phone] at any time.[facility] Allergies No known active allergies Medications Medication Sig Dispensed Refills Start Date End Date Status aytwhjz-Ts-esqt-FA (VINATE ONE) 60 mg iron-1 mg per [...] Name Administration Dates Next Due Tdap 11/16/2023 Family History Medical History Relation Name Comments No Known Problems Brother Sunny No Known Problems Father Armaan Cardiac pacemaker Maternal Grandfather Ori Cardiac pacemaker Maternal Grandmother Holley No Known Problems Mother Cristina No Known Problems Sister 1 Liu No Known Problems Sister 2 Rona Relation Name Status Comments Brother Sunny Alive Father Armaan Alive Maternal Grandfather Ori Maternal Grandmother Holley Mother Cristina Alive Paternal Grandfather Sunny Paternal Grandmother Radha Sister 1 Liu Alive Sister 2 Rona Alive Social History Tobacco Use Types Packs/Day Years [...] money to buy more. Never true 06/21/20 23 Within the past 12 months, t he [...] your living situation today? I have a [facility] place to live 06/21/2023 Education Answer Date [...] Comments Blood Pressure 122/83 11/16/2023 3:23 PM WIRE RIGGER Pulse 93 11/16/2023 3:23 PM WIRE RIGGER Temperature 37.2 ??C (99 ??F) 08/20/2023 3:06 PM CDT Respiratory Rate - - Oxygen Saturation 100% 10/16/2023 2:09 PM WIRE RIGGER Inhaled Oxygen Concentration - - Weight 76.9 kg (169 lb 8 oz) 11/16/2023 3:23 PM WIRE RIGGER Height 156 cm (5' 1.42) 11/16/2023 3:23 PM WIRE RIGGER Body Mass Index 31.59 11/16/2023 3:23 PM WIRE RIGGER Plan of Treatment Health Maintenance Due Date Last Done Comments Hepatitis B Vaccines (1 of 3 - 19+ 3-dose series) 2014 COVID-19 Vaccine ( - 2022- season) 2023 Depression Screening (Annual PHQ-2) 10/26/2023 Cervical Cancer Screening 07/22/2026 07/22/2023 DTaP,Tdap,and Td Vaccines (3 - Td or Tdap) 11/16/2033 11/16/2023, 06/01/2008 HPV Vaccines Completed 12/13/2008, 11/26, 08/10/2008, Additional history exists HIV Screening Completed 07/22/2023 Hepatitis C Screening Completed 07/22/2023 Influenza Vaccine Completed 08/15/2023, , 07/23/2021, Additional history exists Pneumococcal vaccine (0-64 years) Aged Out No longer eligible based on patient's age to complete this topic RSV vaccine - (32-36 weeks) or 60+ years (No Doses Required) Completed Procedures Procedure Name Priority Date/Time Associated Diagnosis [...] S Negative Negative 07/23/2023 8:34 AM CDT [facility] Comment:Souqvo-fo-nyeyfe rat io is <1.00. Blood (Blood, Venous) 07/22/2023 10:41 AM CDT 07/23/2023 6:54 AM CDT Sheila Hughes APRN.N.P., M.S.N. LAB MICROBIOLOGY - BLOOD ORDERABLES [facility] [address] [place] [address] [facility] [address] [place] [address] * HIV-1/-2 Ag and Ab Scrn, Plasma [...] C.N.P., M.S.N. LAB MICROBIOLOGY - BLOOD ORDERABLES [facility] [address] [place] [address], [facility] [address] [address] * ThinPrep Screen HPV Reflex (07/22/2023 9:43 AM CDT) 07/24/2023 3:25 PM CDT [facility] Report electronically signed by Bernadette K. Shashi, [place] (ASCP) I verify that I have examined [...] 9:43 AM CDT 07/23/2023 6:25 AM CDT Sheila Hughes APRN.N.Panchito., M.S.N. LAB PAP PATHDX ORDERABLES [facility] [address] [place] [address], [place] [facility] [address] [facility] [address] [place] [address] from Last 3 Months or Most Recently Relevant to Health Maintenance
--- OUTSIDE RECORDS SUMMARY | 2024-03-03 11:59 | XMS_ITS ---
Author Name Unknown Organization [facility] Address [address] [place] [address] Care Team Providers Care Accounting Machine Servicer Name Role Phone Unavailable Unavailable Unavailable Surgery Details Not on file Complications Check Surgery Details section. Procedure Estimated Blood Loss Check Surgery Details section. Procedure Findings Check Surgery Details section. Procedure Specimens Taken Check Surgery Details section.
--- OUTSIDE RECORDS SUMMARY | 2024-03-03 11:59 | XMS_ITS | Clinical Summary ---
Author Name Unknown Organization [facility] [employer] Address [place], [place] [address] Care Team Providers Care Audit Control Clerk Name Role Phone ShefaliKaren preciado Primary Care Provider [phone]- [phone] Allergies No known active allergies Medications Medication Sig Dispensed Refills Start Date End Date Status vitamins-folic acid 1 mg ( RX) tablet Take 1 Tablet by mouth once daily. 08/20/2023 Active docusate (COLACE) 100 mg capsule Take 100 mg by mouth two times daily. 02/01/2024 Active norethindrone-eth estradiol, 1-35 mg-mcg, (ORTHO-NOVUM 1/35; NORTREL 1/35) 1-35 mg-mcg tabletIndications:En counter for counseling regarding contraception Take 1 Tablet by mouth once daily. 90 Tablet 3 02/29/2024 Active norethindrone, Contraceptive, (MICRONOR, 28,) 0.35 mg tabletIndications:En counter for initial prescription of contraceptive pills Take 1 Tablet (0.35 mg) by mouth once daily. 90 Tablet 3 02/17/2024 02/29/2024 Discontinued (*Med complete/Reg imen complete/Lev el of care change) Active Problems No known active problems Encounters Date Type Department Care Team Description 03/01/2024 4:27 PM CDT - 03/01/2024 8:39 PM CDT Emergency [facility] [address] [place] [address] Karissa Phan NP Vaginal bleeding (Primary Dx) Discharge Disposition: Home Self Care 03/01/2024 3:55 PM CDT Office Visit [facility] [address] [facility] [place] [address] Navjot Hu PA Vaginal Bleeding (Vaginal delivery on 01/30/24. Vaginal bleeding had started slowing down. Started oral contraceptive on 02/21/24. Since 02/24/24 vaginal bleeding has increased. Filling a maxi pad once every 2 hours. Light lower abdominal cramping. Is seeing some small clots. ) 03/01/2024 Travel 02/29/2024 Nurse Triage [facility] [address] [place] [address] Karen Meehan, DO Vaginal Bleeding 02/26/2024 Telephone [facility] [address] [place] [address] Karen Meehan, DO Medication Management 02/17/2024 10:00 AM CDT Office Visit [facility] [address] [place] [address] Karen Meehan, DO Contraception (patient is interested in starting oral contraceptives) 02/17/2024 Travel 02/01/2024 Lab Requisition [facility] [phone] Isha Maher MD from Last 3 Months Immunizations Name Administration Dates Next Due Hepatitis A (Peds) 12/13/2008,06/01/2008 Human Papilloma Virus Vaccine 12/13/2008, 008,06/01/2008 Influenza, IIV3 (Age 6-35 mos) 08/13/2011 Influenza, IIV3 (Age >=3 years) 08/14/20 17,08/06/2016,08/10/2013,08/15,08/10/2008,09/02/2007 Influenza, IIV4 08/15/2023,,07/23/2021,08/13,07/09/2015 Influenza, IIV4 (=>6mos) MDV 07/28/2019 Influenza, Injectable, Mdck, Quadrivalent, W/preservative 08/10/2018 Meningococcal Vaccine (Menactra) 06/01/2008 Meningococcal Vaccine (Menveo) 07/09/2015 Tdap 11/16/2023,06/01/2008 Family History Medical History Relation Name Comments Cancer-colon Mother Hypertension Mother Relation Name Status Comments Mother Social History Tobacco Use Types Packs/Day Years Used Date Smoking Tobacco: Never Smokeless Tobacco: Never Tobacco Cessation:Counseling Given: Yes Alcohol Use Standard Drinks/Week Comments No 0 (1 standard drink = 0.6 oz pur e alcohol) occassional PHQ-2 Answer Date Recorded PHQ-2 TOTAL SCORE 0 02/17/2024 [facility] - Occupational Stress Questionnaire Answer Date Recorded Feeling of Stress Not at all 03/16/2019 Exercise Vital Sign Answer Date Recorde d Days of Exercise per Week 4 days 2018 Minutes of Exercise per Session 60 min 03/16/2019 Social Connections Answer Date Recorded Frequency of Communication with Friends and Fami ly 0 02/17/2024 Financial Resource Strain Answer Date R ecorded Difficulty of Paying Living Expenses 3 02/17/2024 Difficulty of Paying Living Expenses Not on file 02/17/2024 Food Insecurity Answer Date Recorded Worried About Running Out of Food in the Last Ye ar 1 02/17/2024 Transportation Needs Answer Date Record ed Lack of Transportation (Medical) 1 02/17/2024 Housing Stability Answer Date Recorded Unable to Pay for Housing in the Last Year 1 02/17/2024 Sex and Gender Information Value Date Recorded Sex Assigned at Not on file Gender Identity Not on file Sexual Orientation Not on file Obstetrics History Para Term AB IAB SAB Ectopic Multiple Livin g Live Births 1 1 1 1 1 Date Outcome GA Total Labor Labor/2nd/3rd Weight Sex Delivery Anes PTL Jaye A1 A5 Name Cl in 01/29 Term 39w 4d 3.59 kg (7 lb 14.5 oz) M Vag Merlyn ng 3 7 [place] Last Filed Vital Signs Vital Sign Reading Time Taken Comments Blood Pressure 138/85 03/01/2024 8:37 PM CDT Pulse 98 03/01/2024 8:37 PM CDT Temperature 36.5 ??C (97.7 ??F) 03/01/2024 4:36 PM CD T Respiratory Rate 17 03/01/2024 4:36 PM CDT Oxygen Saturation 98% 03/01/2024 8:37 PM CDT Inhaled Oxygen Concentration - - Weight 73 kg (161 lb) 03/01/2024 4:36 PM CDT Height 156.2 cm (5' 1.5) 03/01/2024 4:36 PM CDT Body Mass Index 29.93 03/01/2024 4:36 PM CDT Plan of Treatment Health Maintenance Due Date Last Done Comments HIV for age 15-65 2010 Hepatitis C screening for age 18-79 2013 Pap test for age 21-65 2016 COVID-19 vaccine series ( season) 2023 Influenza for age 9-49 06/26/2024 , 08/13/2022, 07/23/2021, Additional history exists BMI (ht and wt on same day) for age 18+ 02/16/2025 02/17/2024, 03/16/2019 Depression screening for age 12+ 02/16/2025 02/17/2024, 03/16/2019 Tetanus booster 11/16/2033 11/16/2023, 06/01/2008 Tdap Completed 11/16/2023, 06/01/2008 Pneumococcal series for age 6-64 Aged Out No longer eligible based on patient's age to complete this topic Procedures Procedure Name Priority Date/Time Associated Diagnosis Comments US PELVIS COMPLETE TA STAT 03/01/2024 5:34 PM CDT TYPE & SCREEN STAT 03/01/2024 4:57 PM CDT CBC WITH AUTO DIFFERENTIAL STAT 03/01/2024 4:57 PM CDT PROTIME-INR STAT 03/01/2024 4:57 PM CDT C-REACTIVE PROTEIN STAT 03/01/2024 4: 57 PM CDT COMP METABOLIC PANEL STAT 03/01/2024 4:57 PM CDT CBC WITH AUTO DIFFERENTIAL STAT 03/01/2024 4:57 PM CDT LAB TRACKING EVENT Routine 01/30/2024 8: 03 PM CDT PATH TISSUE EXAM PLACENTA Routine 01/30/2024 7:20 PM CDT from Last 3 Months Results * US PELVIS COMPLETE TA (03/01/2024 5:34 PM CDT) Anatomical Region Laterality Modality Pelvis Ultrasound 03/01/2024 6:11 PM CDT Impressions 03/01/2024 6:11 PM CDT 1. Indeterminate hypoechoic lesion in the fundal endometrium with a focus of internal vascularity. Differential considerations include polyp, subendometrial fibroid, or retained products of conception. Evaluation is limited by transabdominal technique. 2. Two uterine fibroids are noted. Dictated by Puja Marie MD @ 03/01/2024 6:11:12 PM (Electronically Signed) Narrative 03/01/2024 6:11 PM CDT For Patients: ??As a result of the Cures Act, medical imaging exams and procedure reports are released immediately into your electronic medical record. ??You may view this report before your referring provider. ??If you have questions, please contact your health care provider. INDICATION: Abnormal bleeding, check for retained products. COMPARISON: None. TECHNIQUE: 2D frazier scale and color Doppler images were acquired of the pelvis using a transabdominal approach. FINDINGS: Sonographic images demonstrate a normal size and smooth outer contour of the uterus. The uterus is anteverted in position. The uterus measures 9.1 cm in length by 4.8 cm in AP diameter by 6.9 cm in transverse dimension. There is a 2.8 cm intramural fibroid in the left uterus and a 1.3 cm subserosal fibroid in the right uterine fundus. The endometrial lining measures 10 mm in composite thickness. There is an ovoid hypoechoic lesion in the fundal endometrium measuring approximately 1.1 cm with a focus of internal vascularity (images 21-22). The right ovary was not visualized. The left ovary measures 2.2 x 2.5 x 1.8 cm and contains a 1.6 cm dominant follicle. ??No free fluid in the pelvic cul-de-sac. Procedure Note Puja Marie MD - 03/01/2024 For Patients: As a result of the Century Cures Act, medical imagingexams and procedure reports are released immediately into your electronicmedical record. You may view this report before your referring provider.If you have questions, please contact your health care provider. INDICATION: Abnormal bleeding, check for retained products. COMPARISON: None. TECHNIQUE: 2D frazier scale and color Doppler images were acquired of the pelvis using atransabdominal approach. FINDINGS: Sonographic images demonstrate a normal size and smooth outer contour ofthe uterus. The uterus is anteverted in position. The uterus measures 9.1cm in length by 4.8 cm in AP diameter by 6.9 cm in transverse dimension.There is a 2.8 cm intramural fibroid in the left uterus and a 1.3 cmsubserosal fibroid in the right uterine fundus. The endometrial lining measures 10 mm in composite thickness. There is anovoid hypoechoic lesion in the fundal endometrium measuring approximately1.1 cm with a focus of internal vascularity (images 21-22). The right ovary was not visualized. The left ovary measures 2.2 x 2.5 x1.8 cm and contains a 1.6 cm dominant follicle. No free fluid in thepelvic cul-de-sac. IMPRESSION: 1. Indeterminate hypoechoic lesion in the fundal endometrium with a focusof internal vascularity. Differential considerations include polyp,subendometrial fibroid, or retained products of conception. Evaluation islimited by transabdominal technique. 2. Two uterine fibroids are noted. Dictated by Puja Marie MD @ 03/01/2024 6:11:12 PM (Electronically Signed) Karissa Phan NP US * CBC WITH AUTO DIFFERENTIAL (03/01/2024 4:57 PM CDT) WHITE BLOOD COUNT 7.7 4.5 - 11.0 thou/cu mm 03/01/2024 5:09 PM CDT [facility] RED BLOOD COUNT 4.15 4.00 - 5.20 mil/cu mm 03/01/2024 5:09 PM CDT [facility] HEMOGLOBIN 12.1 12.0 - 16.0 g/dL 03/01/2024 5:09 PM CDT [facility] HEMATOCRIT 36.2 33.0 - 51.0 % 03/01/2024 5:09 PM [facility] MCV 87 80 - 100 fL 03/01/2024 5:09 PM [facility] MCH 29.2 26.0 - 34.0 pg 03/01/2024 5:09 PM [facility] MCHC 33.4 32.0 - 36.0 g/dL 03/01/2024 5:09 PM [facility] RDW 12.8 11.5 - 15.5 % 03/01/2024 5:09 PM [facility] PLATELET COUNT 297 140 - 440 thou/cu mm 03/01/2024 5:09 PM [facility] MPV 9.3 6.5 - 11.0 fL 03/01/2024 5:09 PM [facility] % NEUT 59.8 % 03/01/2024 5:09 PM [facility] % LYMPH 32.9 % 03/01/2024 5:09 PM [facility] % MONO 5.6 % 03/01/2024 5:09 PM [facility] % EOS 1.0 % 03/01/2024 5:09 PM [facility] % BASO 0.7 % 03/01/2024 5:09 PM [facility] ABSOLUTE NEUTROPHILS 4.6 1.7 - 7.0 thou/cu mm 03/01/2024 5:09 PM [facility] ABSOLUTE LYMPHOCYTES 2.5 0.9 - 2.9 thou/cu mm 03/01/2024 5:09 PM [facility] ABSOLUTE MONOCYTES 0.4 <0.9 thou/cu mm 03/01/2024 5:09 PM [facility] ABSOLUTE EOSINOPHILS 0.1 <0.5 thou/cu mm 03/01/2024 5:09 PM [facility] ABSOLUTE BASOPHILS 0.1 <0.3 thou/cu mm 03/01/2024 5:09 PM [facility] Blood BLOOD SPECIMEN / Unknown Venipuncture / Unknown 03/01/2024 4:57 PM CDT 03/01/2024 5:06 PM CDT Karissa Phan NP HEMATOLOGY [facility] [address] [place] [address] * TYPE & SCREEN (03/01/2024 4:57 PM CDT) Pathologist [facility] ABORH A Rh Positive 03/01/2024 5:48 PM CDT [facility] BLOOD BANK ANTIBODY SCREEN Negative Negative 03/01/2024 5:48 PM CDT [facility] BLOOD BANK SPECIMEN EXPIRATION DATE/TIME 03/04/24 23:59 03/01/2024 5:48 PM CDT [facility] BLOOD BANK Blood BLOOD SPECIMEN / Unknown Venipuncture / Unknown 03/01/2024 4:57 PM CDT 03/01/2024 5:06 PM CDT Karissa Phan NP BLOOD BANK Performing Organization Address City/[facility]/ZIP Co de Phone Number [facility] BLOOD BANK [address] [place] [address] * C-REACTIVE PROTEIN (03/01/2024 4:57 PM CDT) [facility] C-REACTIVE PROTEIN <0.3 <0.5 mg/dL 03/01/2024 5:28 PM CDT [facility] Blood BLOOD SPECIMEN / Unknown Venipuncture / Unknown 03/01/2024 4:57 PM CDT 03/01/2024 5:06 PM CDT Karissa Phan NP CHEMISTRY Performing Organization Address City/[facility]/ZIP Co de Phone Number [facility] [address] [place] [address] * PROTIME-INR (03/01/2024 4:57 PM CDT) Pathologist [facility] INR 1.0 <1.3 03/01/2024 5:26 PM T [facility] PROTIME 10.8 10.3 - 12.3 sec 03/01/2024 5:26 PM [facility] Blood BLOOD SPECIMEN / Unknown Venipuncture / Unknown 03/01/2024 4:57 PM CDT 03/01/2024 5:06 PM CDT [facility] - 03/01/2024 5:26 PM CDT ?Therapeutic Range 2.0-3.0 for most anticoagulated patients 2.5-3.5 or 4.0 for high risk patients The INR is only used for patients on stable oral anticoagulant therapy. It makes no significant contribution to the diagnosis or treatment of patients whose Protime is prolonged for other reasons. INR results are increased when heparin levels exceed 1.0 U/mL, which corresponds to an aPTT >125 seconds if the patient is on UFH. Karissa Phan NP HEMATOLOGY [facility] [address] [place] [address] * (ABNORMAL) COMP METABOLIC PANEL (03/01/2024 4:57 PM CDT) SODIUM 138 136 - 145 mmol/L 03/01/2024 5:26 PM [facility] POTASSIUM 4.0 3.5 - 5.1 mmol/L 03/01/2024 5:26 PM [facility] CHLORIDE 103 98 - 107 mmol/L 03/01/2024 5:26 PM [facility] CO2,TOTAL 25 22 - 29 mmol/L 03/01/2024 5:26 PM [facility] ANION GAP 10 5 - 18 03/01/2024 5:26 PM [facility] GLUCOSE 108(H) 70 - 99 mg/dL 03/01/2024 5:26 PM [facility] CALCIUM 8.9 8.6 - 10.0 mg/dL 03/01/2024 5:26 PM [facility] BUN 10 6 - 20 mg/dL 03/01/2024 5:26 PM [facility] CREATININE 0.63 0.50 - 0.90 mg/dL 03/01/2024 5:26 PM [facility] BUN/CREAT RATIO 16 10 - 20 5:26 PM [facility] eGFR >90 >90 mL/min/1.7 3m2 03/01/2024 5:26 PM [facility] Comment:As of 2022, eG FR is calculated by the CKD-EPI creatinine equation without race adjustment. ??eGFR can be influenced by muscle mass, exercise, and diet. ??The reported eGFR is an estimation only and is only applicable if the renal function is stable. ALBUMIN 4.2 4.0 - 4.9 g/dL 03/01/2024 5:26 PM [facility] PROTEIN,TOTAL 6.7 6.0 - 8.0 g/dL 03/01/2024 5:26 PM [facility] BILIRUBIN,TOTAL 0.3 0.0 - 1.2 mg/dL 03/01/2024 5:26 PM [facility] ALK PHOSPHATASE 85 35 - 104 IU/L 03/01/2024 5:26 PM [facility] ALT (SGPT) 13 10 - 35 IU/L 03/01/2024 5:26 PM [facility] AST (SGOT) 22 10 - 35 IU/L 03/01/2024 5:26 PM T [facility] Blood BLOOD SPECIMEN / Unknown Venipuncture / Unknown 03/01/2024 4:57 PM CDT 03/01/2024 5:06 PM CDT Karissa Phan NP CHEMISTRY [facility] [address] [place] [address] * LAB TRACKING EVENT (01/30/2024 8:03 PM CDT) Other (Other) Client Collect / Unknown 01/30/2024 8:03 PM CDT 02/01/2024 1:31 PM CDT Isha Maher MD LAB BILL ONLY [facility] [address] [place] [address], * PATH TISSUE EXAM PLACENTA (01/30/2024 7:20 PM CDT) Case Report Pathology Report ?Case: [id number] ? Authorizing Provider: ??Isha Maher MD ?? Collected: ? 01/30/2024 1920 ? Ordering Location: ? [facility] ?Received: ?02/01/2024 1415 ? Pathologist: ? Lucia Ludwig MD ? Specimen: ?Placenta ? 02/03/2024 9:17 AM CDT [facility] Final Diagnosis A) PLACENTA, VAGINAL DELIVERY: 1. Third trimester hopper placenta with the following characteristics: ? a. Weight: 451 grams (10-25th percentile for gestational age) ? b. Membranes/ surface: ?Circummarginate placentation ?Mild acute subchorionitis (grade 1, stage 1) ? c. 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 d. Disc/Villi: ?Chorionic villi consistent with gestational age ?Negative for villitis ?Placental disc without infarcts ? e. Decidua/basal plate: ?No diagnostic abnormalities identified 02/03/2024 9:17 AM [facility] [employer]-[facility] ENTRAL LAB[facility]AT[facility] Comment The patient's clinical history of hypertension is noted. Some histologic features that can be associated with maternal hypertensive disorders include decidual vasculopathy, infarcts, abruption, villous maldevelopment, and small placental size. ??In this case, none of these findings are seen. ?? Acute chorioamnionitis (maternal inflammatory response) with associated inflammatory response (chorionic plate vasculitis, umbilical phlebitis, or umbilical arteritis) is usually due to an ascending bacterial infection. Although only a small proportion of infants whose placentas show acute chorioamnionitis develop sepsis, the presence of a inflammatory response, especially when severe, increases this risk, as well as the risk of thrombotic diathesis and neurologic impairment. In this case, the maternal and responses are mild. Circummarginate placental membrane insertion describes the phenomenon when placental membranes do not arise from the edge of the placental disc. The pathogenesis of this finding is incompletely understood; however, they are favored to arise from a marginal hemorrhage early in gestation. The most common clinical complications associated with this placental finding are bleeding and premature delivery. 02/03/2024 9:17 AM [facility] [facility] EN[facility]AL LAB[facility]ATORY Clinical Information / Indications or stress (including low Apgars) Maternal Indications maternal hypertension (intrapartum) Placental Indications Infections Specimen? No Clinical Information Date of delivery 01/30/2024 Time of delivery 1920 Type of delivery vaginal Live born? Yes Gestational age (weeks) 39.4 weight of (grams) ??3585 Sex of (s) male Pertinent maternal history ?? Diabetes ??no ?? Hypertension ??Yes ?? Eclampsia ??no ?? Smoking ??no 02/03/2024 9:17 AM [facility] [employer] [facility] Gross Description A) Received fresh labeled with the patient's name and placenta, is an 18 x 14 x 2 cm, 451 gram oval placenta with 68 cm long trivascular umbilical cord inserting centrally 5.5 cm from the margin. ??There are no cord knots identified. ??6 cm from the insertion point, there is a 6 cm long area of cord hemorrhage with expanded diameter up to 2.2 cm (remainder of cord diameter averages 1.4 cm). ??30% of the membranes insert marginally and 70% of the membranes insert circummarginally, with membranes inserting between 1.2 and 3 cm inwards from the placental disc. ??The surface has a purplish blue appearance with normally ramifying vessels. ??The maternal surface appears intact with small amounts of loosely adherent blood clot. ??On cut section, no discrete lesions are identified. ??[employer] Worker sections are submitted as follows: 1. ??Proximal and distal umbilical cord 2. ??2 sections through area of cord hemorrhage 3. ??Membranes 4. ??Insertion point of cord 5, 6. ??Full-thickness sections through central portion of placenta TRB 02/01/2024 02/03/2024 9:17 AM [facility] Microscopic Description The final diagnosis is based on microscopic examination of appropriate sections of all specimens. 02/03/2024 9:17 AM [facility] Additional Information Interpreted at [facility] [employer] [facility] - [address], [place] [address] 02/03/2024 9:17 AM [facility] Tissue SPECIMEN FROM PLACENTA / Unknown 01/30/2024 7:20 PM CDT 02/01/2024 2:15 PM CDT Isha Maher MD PATHOLOGY/CYTOLOG Y [facility] [address] [place] [address], from Last 3 Months Care Teams Audit Control Clerk Relationship Specialty Start Date End Date Karen Meehan DO [address] [place] [address] PCP - General Family Practice 12/09/23
[2024-03-03] MEDS: LACTATED RINGERS 1000 ML 1,000 ML 100 ML IV (12:15)
[2024-03-03] MEDS: SODIUM CHLORIDE 0.9 % (FLUSH) 10 ML SYRINGE IVF (12:15)
[2024-03-03 12:22] VITALS: BP 117/68; PULSE 84; RESP 16; TEMP 36.6; O2SAT 99; BMI 31.4
[2024-03-03 12:39] LABS: Hemoglobin* 11.1 gm/dL (12.0-16.0)
[2024-03-03] MEDS: DOXYCYCLINE HYCLATE 100 MG 200 MG PO (12:54)
--- NOTE | 2024-03-03 13:07 | W.ANESCHARGE ---
Anesthesia Charges Start Date/Time Anesthesia Start Date: 03/03/24 Anesthesia Start Time: 13:24 Stop Date/Time Anesthesia Stop Date: 03/03/24 Anesthesia Stop Time: 14:19
[2024-03-03] MEDS: LIDOCAINE 1% MDV 20 ML INJECTION (13:55)
[2024-03-03] MEDS: miSOPROStoL 800 MCG/4 TABLET PR (14:03)
--- NOTE | 2024-03-03 14:14 | P.GYNPRC_ITS ---
Procedure Note Date of procedure: 03/03/24 Will [facility] bill your pro fee for this procedure?: Yes Pre-op diagnosis: bleeding at 5 weeks Possible retained placenta on pelvic ultrasound Post-op diagnosis: bleeding at 5 weeks Possible retained placenta Procedure: Hysteroscopy with visual dilation and curettage Anesthesia: MAC and local Complications: None Surgeon: Isha Maher MD Estimated blood loss (mL): 100 IV fluids (mL): 900 Urine Output (mL): 95 Pathology: specimen obtained, sent to pathology (uterine contents - verbally confirmed desire to send specimen to pathology) Condition: stable Disposition: same day Findings: 1. On exam under anesthesia, there were right labial and perineal lacerations that still exhibited suture material, but these were both healing well. The cervix was normal appearance. On bimanual exam, uterus was soft, mobile, anteverted, of approximately normal size and texture. There were no palpable adnexal masses. 2. On hysteroscopy, the entire endometrial cavity exhibited a thickened, irregul ar appearance, with a more heaped up appearance near the left fundal. Endometrium exhibited multiple yellowish deposits and some blackened deposits as well. 3. Saline deficit at end of procedure was 1860 mL. I did not suspect perforation, but she did have rapid accumulation of deficit, possibly due to status. 4. Immediate heavy bleeding after cessation of hysteroscopy, leading to ad ministration of 800 mcg of rectal misoprostol and a single dose of 0.2 mg of IM Hemabate. Procedure Description: Patient was taken to the operating room with IV running. She was positioned in dorsal lithotomy position with her legs fully supported in Yellofin stirrups. Monitored anesthesia care was administered. She was prepped and draped in the usual sterile fashion. Exam under anesthesia was performed for the above-noted findings. Speculum was inserted. Cervix visualized and grasped along the anterior lip with a single-tooth tenaculum. Paracervical block performed for a total of 10 cc of 1% lidocaine. Cervix was serially dilated to accommodate the TRUCLEAR hysteroscope. This was assembled with saline inflow and outflow in place. The line was flushed of bubbles. The hysteroscope was advanced through the cervix into the endometrial cavity for the above noted findings. The tissue morcellator was then inserted through the operating channel. Window lock was performed. Under direct visualization, the endometrial cavity was circumferentially curetted with the tissue morcellator. Heavy bleeding was noted at portions of the procedure. The hysteroscope and morcellator were then removed from the uterus. Tenaculum was removed from the anterior lip of cervix. Bleeding was initially heavy, but lightened substantially after a few minutes of observation. Patient tolerated procedure well. She was taken to recovery area in stable condition.
[2024-03-03 14:15] VITALS: BP 112/64; PULSE 78; RESP 14; TEMP 36.6; O2SAT 95
--- NOTE | 2024-03-03 14:20 | W.ANESCHARGE ---
Anesthesia Charges Start Date/Time Anesthesia Start Date: 03/03/24 Anesthesia Start Time: 13:24 Stop Date/Time Anesthesia Stop Date: 03/03/24 Anesthesia Stop Time: 14:19
[2024-03-03 14:30] VITALS: BP 105/84; PULSE 92; RESP 16; O2SAT 96
[2024-03-03 14:45] VITALS: BP 113/80; PULSE 82; RESP 16; O2SAT 96
[2024-03-03 15:00] VITALS: BP 116/91; PULSE 88; RESP 16; O2SAT 96
[2024-03-03 15:15] VITALS: BP 115/82; PULSE 86; RESP 16; O2SAT 94
== END 2024-03-03 15:30 | disposition home or self-care (01) ==
LOC: OR 11:57
PROVIDERS: PCP Family Medicine; Visit Provider Obstetrics & Gynecology
PROC: 0UDB8ZZ Extraction of Endometrium, Via Natural or Artificial Opening Endoscopic (ICD-10-PCS; CPT 58558; principal; 2024-03-03 14:00)
DX: O72.2 Delayed and secondary postpartum hemorrhage (principal)
CPT/HCPCS: 59160; 00942; 00952; 36415; 85018; 86850; 86900; 86901; 88305; A9270; J1100; J1885; J2250; J2405; J2704; J3010; J7120

== ENCOUNTER 2024-03-23 10:49 | Outpatient (CLI) | payer BC, SELFPAY ==
--- OUTSIDE RECORDS SUMMARY | 2024-03-23 10:51 | XMS_ITS | Clinical Summary ---
Author Organization [facility] Address [place], [place] [address] Care Team Providers Care Rinkman Name Role Phone Karen Meehan DO Primary Care Provider [phone] Allergies No known active allergies Medications Medication [...] Encounters Date Type Department Care Team Description 03/03/2024 Lab Requisition [facility] [phone] Isha Maher MD 03/01/2024 4:27 PM CDT - 03/01/2024 8:39 PM CDT Emergency [facility] [address] [place] [address] Karissa Pahn NP Vaginal bleeding (Primary Dx) Discharge Disposition: Home Self Care 03/01/2024 3:55 PM CDT Office Visit [facility] [address] [place] [address] Navjot Hu PA Vaginal Bleeding (Vaginal delivery on 01/30/24. Vaginal bleeding had started slowing down. Started oral contraceptive on 02/21/24. Since 02/24/24 vaginal bleeding has increased. Filling a maxi pad once every 2 hours. Light lower abdominal cramping. Is seeing some small clots. ) 03/01/2024 Travel 02/29/2024 Nurse Triage [facility] [address] [place] [address] Karen Meehan, DO Vaginal Bleeding 02/26/2024 Telephone [facility] [address] [place] [address] Karen Meehan, DO Medication Management 02/17/2024 10:00 AM CDT Office Visit [facility] [address] [place] [address] Karen Meehan, DO Contraception (patient is interested in starting oral contraceptives) 02/17/2024 Travel 02/01/2024 Lab Requisition [facility] [phone] Isha Maher MD from Last 3 Months [...] Date Recorded PHQ-2 TOTAL SCORE 0 02/17/2024 [facility] - Occupational Stress [...] oz) M Vag Merlyn ng 3 7 [place] Last Filed Vital Signs Vital Sign Reading [...] 03/01/2024 4:36 PM CDT Plan of Treatment Upcoming Encounters Date Type Department Care Team (Late st Contact Info) Description 03/28/2024 1:10 PM CDT Office Visit [facility] [address] [place] [address] Karen Meehan, [address] [place] [address] Health Maintenance Due Date Last Done Comments [...] Procedure Name Priority Date/Time Associated Diagnosis Comments LAB TRACKING EVENT Routine 03/03/2024 2: 03 PM CDT PATH TISSUE EXAM Routine 03/03/2024 2:03 PM CDT US PELVIS COMPLETE TA STAT 03/01/2024 5:34 [...] CDT from Last 3 Months Results * LAB TRACKING EVENT (03/03/2024 2:03 PM CDT) Only the most recent of2 resultswithin the time period is included. Other (Other) Client Collect / Unknown 03/03/2024 2:03 PM CDT 03/03/2024 9:41 PM CDT Isha Maher MD LAB BILL ONLY Performing Organization Address City/State/[facility] Co de Phone Number [facility] [address] [place] [address], * PATH TISSUE EXAM (03/03/2024 2:03 PM CDT) Case Report Pathology Report ?Case: [id number] ? Authorizing Provider: ??Isha Maher MD ?? Collected: ? 03/03/2024 1403 ? Ordering Location: ? [facility] ?Received: ?03/04/2024 0825 ? Pathologist: ? Adrian Farnsworth MD ? Specimen: ?Retained Placenta ? 03/08/2024 1:58 PM CDT [facility] Final Diagnosis A) UTERINE CONTENTS, CURETTAGE: 1. Degenerating implantation site and chorionic villi consistent with ?clinical impression of retained intrauterine placenta 2. Negative for abnormal trophoblastic proliferation and malignancy 03/08/2024 1:58 PM CDT [facility] Clinical Information Possible retained placenta 03/08/2024 1:58 PM CDT [facility] Gross Description A) Received in formalin, labeled with the patient's name and retained placenta, is a 3 x 3 x 0.5 cm aggregate of morcellated solomon tissue. The specimen is entirely submitted in 2 cassettes. JPW 03/04/2024 03/08/2024 1:58 PM CDT [facility] Microscopic Description The final diagnosis is based on microscopic examination of appropriate sections of all specimens. 03/08/2024 1:58 PM CDT [facility] Additional Information Interpreted at [facility] Central Laboratory - [address] [facility] [address], [place] [address] 03/08/2024 1:58 PM CDT [facility] Other (Retained Placenta) 03/03/2024 2:03 PM CDT 03/04/2024 8:25 AM CDT Isha Maher MD PATHOLOGY/CYTOLOG Y [facility] [address] [place] [address], [place] * US PELVIS COMPLETE TA (03/01/2024 5:34 [...] For Patients: ??As a result of the Century Cures Act, medical imaging exams and procedure [...] 03/01/2024 6:11:12 PM (Electronically Signed) Karissa Phan MANAGER FUND US * CBC WITH AUTO DIFFERENTIAL (03/01/2024 4:57 PM CDT) WHITE BLOOD COUNT 7.7 4.5 - 11.0 thou/cu mm 03/01/2024 5:09 PM CDT [facility] RED BLOOD COUNT 4.15 4.00 - 5.20 mil/cu mm 03/01/2024 5:09 PM [facility] HEMOGLOBIN 12.1 12.0 - 16.0 g/dL 03/01/2024 5:09 PM [facility] HEMATOCRIT 36.2 33.0 - 51.0 % 03/01/2024 5:09 PM [facility] MCV 87 80 - 100 fL 03/01/2024 5:09 PM [facility] MCH 29.2 26.0 - 34.0 pg 03/01/2024 5:09 PM [facility] MCHC 33.4 32.0 - 36.0 g/dL 03/01/2024 5:09 PM [facility] RDW 12.8 11.5 - 15.5 % 03/01/2024 5:09 PM [facility] PLATELET COUNT 297 140 - 440 thou/cu mm 03/01/2024 5:09 PM [facility] MPV 9.3 6.5 - 11.0 fL 03/01/2024 5:09 PM [facility] % NEUT 59.8 % 03/01/2024 5:09 PM [facility] % LYMPH 32.9 % 03/01/2024 5:09 PM [facility] % MONO 5.6 % 03/01/2024 5:09 PM [facility] % EOS 1.0 % 03/01/2024 5:09 PM [facility] % BASO 0.7 % 03/01/2024 5:09 PM [facility] ABSOLUTE NEUTROPHILS 4.6 1.7 - 7.0 thou/cu mm 03/01/2024 5:09 PM [facility] ABSOLUTE LYMPHOCYTES 2.5 0.9 - 2.9 thou/cu mm 03/01/2024 5:09 PM [facility] ABSOLUTE MONOCYTES 0.4 <0.9 thou/cu mm 03/01/2024 5:09 PM [facility] ABSOLUTE EOSINOPHILS 0.1 <0.5 thou/cu mm 03/01/2024 5:09 PM CDT [facility] ABSOLUTE BASOPHILS 0.1 <0.3 thou/cu mm 03/01/2024 5:09 PM CDT [facility] Blood BLOOD SPECIMEN / Unknown Venipuncture / Unknown 03/01/2024 4:57 PM CDT 03/01/2024 5:06 PM CDT Karissa Phan NP HEMATOLOGY Performing Organization Address City/[facility]/ZIP Co de Phone Number [facility] [address] [place] [address] * TYPE & SCREEN (03/01/2024 4:57 PM CDT) Pathologist [facility] ABORH A Rh Positive 03/01/2024 5:48 PM CDT [facility] BLOOD BANK ANTIBODY SCREEN Negative Negative 03/01/2024 5:48 PM CDT [facility] BLOOD BANK SPECIMEN EXPIRATION DATE/TIME 03/04/24 23:59 03/01/2024 5:48 PM CDT [facility] BLOOD BANK Blood BLOOD SPECIMEN / Unknown Venipuncture / Unknown 03/01/2024 4:57 PM CDT 03/01/2024 5:06 PM CDT Karissa Phan NP BLOOD BANK Performing Organization Address [facility] Co de Phone Number [facility] BLOOD BANK [address] [place] [address] * C-REACTIVE PROTEIN (03/01/2024 4:57 PM CDT) C-REACTIVE PROTEIN <0.3 <0.5 mg/dL 03/01/2024 5:28 PM CDT [facility] Blood BLOOD SPECIMEN / Unknown Venipuncture / Unknown 03/01/2024 4:57 PM CDT 03/01/2024 5:06 PM CDT Karissa Phan NP CHEMISTRY Performing Organization Address City/[facility]/ZIP Co de Phone Number [facility] [address] [place] [address] * PROTIME-INR (03/01/2024 4:57 PM CDT) [facility] [address] INR 1.0 <1.3 03/01/2024 5:26 PM CDT [facility] PROTIME 10.8 10.3 - 12.3 sec 03/01/2024 5:26 PM CDT [facility] Blood BLOOD SPECIMEN / Unknown Venipuncture / Unknown 03/01/2024 4:57 PM CDT 03/01/2024 5:06 PM CDT [facility] - 03/01/2024 5:26 PM CDT ?Therapeutic [...] is on UFH. Karissa Phan NP HEMATOLOGY [facility] [address] [place] [address] * (ABNORMAL) COMP METABOLIC PANEL (03/01/2024 4:57 PM CDT) [facility] [address] SODIUM 138 136 - 145 mmol/L 03/01/2024 5:26 PM CDT [facility] POTASSIUM 4.0 3.5 - 5.1 mmol/L 03/01/2024 5:26 PM T [facility] CHLORIDE 103 98 - 107 mmol/L 03/01/2024 5:26 PM T [facility] CO2,TOTAL 25 22 - 29 mmol/L 03/01/2024 5:26 PM CDT [facility] ANION GAP 10 5 - 18 03/01/2024 5:26 PM [facility] GLUCOSE 108(H) 70 - 99 mg/dL 03/01/2024 5:26 PM [facility] CALCIUM 8.9 8.6 - 10.0 mg/dL 03/01/2024 5:26 PM [facility] BUN 10 6 - 20 mg/dL 03/01/2024 5:26 PM [facility] CREATININE 0.63 0.50 - 0.90 mg/dL 03/01/2024 5:26 PM [facility] BUN/CREAT RATIO 16 10 - 20 5:26 PM [facility] eGFR >90 >90 mL/min/1.7 3m2 03/01/2024 5:26 PM [facility] Comment:As of 2022, eG FR is calculated by the CKD-EPI creatinine equation without race adjustment. ??eGFR can be influenced by muscle mass, exercise, and diet. ??The reported eGFR is an estimation only and is only applicable if the renal function is stable. ALBUMIN 4.2 4.0 - 4.9 g/dL 03/01/2024 5:26 PM [facility] PROTEIN,TOTAL 6.7 6.0 - 8.0 g/dL 03/01/2024 5:26 PM [facility] BILIRUBIN,TOTAL 0.3 0.0 - 1.2 mg/dL 03/01/2024 5:26 PM [facility] ALK PHOSPHATASE 85 35 - 104 IU/L 03/01/2024 5:26 PM [facility] ALT (SGPT) 13 10 - 35 IU/L 03/01/2024 5:26 PM [facility] AST (SGOT) 22 10 - 35 IU/L 03/01/2024 5:26 PM [facility] Blood BLOOD SPECIMEN / Unknown Venipuncture / Unknown 03/01/2024 4:57 PM CDT 03/01/2024 5:06 PM T Karissa Phan NP CHEMISTRY [facility] [address] [facility] [place] [address] * PATH TISSUE EXAM PLACENTA (01/30/2024 7:20 PM CDT) Case Report Pathology Report ?Case: [id number] ? Authorizing Provider: ??Isha Maher MD ?? Collected: ? 01/30/2024 1920 ? Ordering Location: ? [facility] ?Received: ?02/01/2024 1415 ? Pathologist: ? Lucia Ludwig MD ? Specimen: ?Placenta ? 02/03/2024 9:17 AM CDT [facility] Final Diagnosis A) PLACENTA, [...] ?No diagnostic abnormalities identified 02/03/2024 9:17 AM [facility] Comment The patient's clinical history [...] bleeding and premature delivery. 02/03/2024 9:17 AM CDT [facility] Clinical Information / Indications or stress (including low Apgars) Maternal Indications maternal hypertension (intrapartum) Placental Indications Infections Specimen? No Clinical Information Date of delivery 01/30/2024 Time of delivery 1920 Type of delivery vaginal Live born? Yes Gestational age (weeks) 39.4 weight of (grams) ??3585 Sex of infant(s) male Pertinent maternal history ?? Diabetes ??no ?? Hypertension ??Yes ?? Eclampsia ??no ?? Smoking ??no 02/03/2024 9:17 AM T [facility] Gross Description A) Received fresh labeled [...] cut section, no discrete lesions are identified. ??Pharmacogeneticist sections are submitted as follows: 1. ??Proximal and distal umbilical cord 2. ??2 sections through area of cord hemorrhage 3. ??Membranes 4. ??Insertion point of cord 5, 6. ??Full-thickness sections through central portion of placenta TRB 02/01/2024 02/03/2024 9:17 AM T [facility] Microscopic Description The final diagnosis is based on microscopic examination of appropriate sections of all specimens. 02/03/2024 9:17 AM T [facility] Additional Information Interpreted at [facility] Laboratory - [address], [place] [address] 02/03/2024 9:17 AM T [facility] Tissue SPECIMEN FROM PLACENTA / Unknown 01/30/2024 7:20 PM CDT 02/01/2024 2:15 PM CDT Isha Maher MD PATHOLOGY/CYTOLOG Y [facility] [address] [place] [address], from Last 3 Months Care Teams Rinkman Relationship Specialty Start Date End Date Karen Meehan DO [address] [place] [address] PCP - General Family Practice 12/09/23
--- OUTSIDE RECORDS SUMMARY | 2024-03-23 10:51 | XMS_ITS ---
Author Organization [facility] Address [address] [place] [address] Care Team Providers Care Manager Licensing Name Role Phone Unavailable Unavailable Unavailable Surgery Details Not on file Complications Check Surgery Details section. Procedure Estimated Blood Loss Check Surgery Details section. Procedure Findings Check Surgery Details section. Procedure Specimens Taken Check Surgery Details section.
--- OUTSIDE RECORDS SUMMARY | 2024-03-23 10:51 | XMS_ITS | Clinical Summary ---
Author Organization [facility] Address [address] [place] [address] Care Team Providers Care Booking Officer Name Role Phone Unavailable Primary Care Provider Unavailabl e Source Comments Patient records contain information from all sites at [facility]. For routine questions regarding patient records, call [phone] during business hours, M-F 8:00 AM - 5:00 PM Central Time. Record requests for emergency care only can be directed to [phone] at any time.[facility] Allergies No known active allergies Medications Medication Sig Dispensed Refills Start Date End Date Status fgcksud-Br-pzmw-FA (VINATE ONE) 60 mg iron-1 mg per tablet Take 1 tablet by mouth daily. 90 tablet 3 08/20/2023 Active miconazole (MICOTIN) 2 % vaginal cream Insert 1 applicator into the vagina at bedtime. 45 g 11/16/2023 Active Active Problems Estimated Date of Delivery Comme nts Yes 02/02/2024 Based on last me nstrual period of 04/28/2023 (Exact Date) No known active problems Encounters Date Type Department Care Team Description 03/03/2024 Clinical Communication Department of Obstetrics and Gynecology in [address] [place] [id number] Cami Culp M.D. from Last 3 Months Immunizations Name Administration Dates Next Due Tdap [...] your living situation today? I have a [facility] place to live 06/21/2023 Education Answer Date [...] Comments Blood Pressure 122/83 11/16/2023 3:23 PM SEAFOOD PREPARER Pulse 93 11/16/2023 3:23 PM SEAFOOD PREPARER Temperature 37.2 ??C (99 ??F) 08/20/2023 3:06 PM CDT Respiratory Rate - - Oxygen Saturation 100% 10/16/2023 2:09 PM SEAFOOD PREPARER Inhaled Oxygen Concentration - - Weight 76.9 kg (169 lb 8 oz) 11/16/2023 3:23 PM SEAFOOD PREPARER Height 156 cm (5' 1.42) 11/16/2023 3:23 PM SEAFOOD PREPARER Body Mass Index 31.59 11/16/2023 3:23 PM SEAFOOD PREPARER Plan of Treatment Health Maintenance Due Date Last Done Comments Hepatitis B Vaccines (1 of 3 - 19+ 3-dose series) 2014 COVID-19 Vaccine ( season) 2023 Depression Screening (Annual PHQ-2) 10/26/2023 [...] S Negative Negative 07/23/2023 8:34 AM CDT [facility] Comment:Prfhvf-iz-cpryud rat io is <1.00. Blood (Blood, Venous) 07/22/2023 10:41 AM CDT 07/23/2023 6:54 AM CDT Kary Holguin APRN, C.N.P., M.S.N. LAB MICROBIOLOGY - BLOOD ORDERABLES [facility] [address] [place] [address] [facility] [address] [place] [address] * HIV-1/-2 Ag and Ab Scrn, Plasma [...] CDT 07/22/2023 6:24 PM CDT Kary Holguin APRN C.N.P., M.S.N. LAB MICROBIOLOGY - BLOOD ORDERABLES [facility] [address] [place] [address], [place] [facility] [place] [address] [place] [address] * ThinPrep Screen HPV Reflex (07/22/2023 9:43 [...] 9:43 AM CDT 07/23/2023 6:25 AM CDT Eloy Hughes APRNN.Panchito., M.S.N. LAB PAP PATHDX ORDERABLES Performing Organization Address [facility]/State/[facility] Co de Phone Number [facility] [address] [place] [address], [facility] [address] [address] from Last 3 Months or Most Recently Relevant to Health Maintenance [phone] (Wlpg) [address] [place] [address]
--- OUTSIDE RECORDS SUMMARY | 2024-03-23 10:51 | XMS_ITS | Referral Summary ---
Author Organization [facility] Address [address] [place] [address] Care Team Providers Care District Home Economics Agent Name Role Phone Unavailable Primary Care Provider Unavailabl e Source Comments Patient records contain information from all sites at [facility]. For routine questions regarding patient records, call [phone] during business hours, M-F 8:00 AM - 5:00 PM Central Time. Record requests for emergency care only can be directed to [phone] at any time.[facility] Encounters Date Type Department Care Team Description 03/03/2024 Clinical Communication Department of Obstetrics and Gynecology in [address] [place] [phone] Cami Culp M.D. from Last 3 Months Allergies No known active allergies Medications Medication Sig Dispensed Refills Start Date End Date Status rmxaizw-Up-wbbq-FA (VINATE ONE) 60 mg iron-1 mg per [...] your living situation today? I have a [facility] place to live 06/21/2023 Education Answer Date [...] Comments Blood Pressure 122/83 11/16/2023 3:23 PM COOK HELPER Pulse 93 11/16/2023 3:23 PM COOK HELPER Temperature 37.2 ??C (99 ??F) 08/20/2023 3:06 PM CDT Respiratory Rate - - Oxygen Saturation 100% 10/16/2023 2:09 PM COOK HELPER Inhaled Oxygen Concentration - - Weight 76.9 kg (169 lb 8 oz) 11/16/2023 3:23 PM COOK HELPER Height 156 cm (5' 1.42) 11/16/2023 3:23 PM COOK HELPER Body Mass Index 31.59 11/16/2023 3:23 PM COOK HELPER Plan of Treatment Not on file Procedures [...] S Negative Negative 07/23/2023 8:34 AM CDT [facility] Comment:Fzrdyx-tv-yzjzbk rat io is <1.00. Blood (Blood, Venous) 07/22/2023 10:41 AM CDT 07/23/2023 6:54 AM CDT Kary Holguin APRN, C.N.P., M.S.N. LAB MICROBIOLOGY - BLOOD ORDERABLES [facility] [address] [place] [address] [facility] [address] [place] [address] * HIV-1/-2 Ag and Ab Scrn, Plasma [...] MICROBIOLOGY - BLOOD ORDERABLES Performing Organization Address [facility] Co de Phone Number [facility] [address] [place] [address], [facility] in [address] [address] * ThinPrep Screen HPV Reflex (07/22/2023 9:43 [...] PAP PATHDX ORDERABLES Performing Organization Address City/[facility]/ZIP Co de Phone Number [facility] [address] [place] [address], [place] [facility] [address] [address] from Last 3 Months or Most Recently Relevant to Health Maintenance
--- OUTSIDE RECORDS SUMMARY | 2024-03-23 10:51 | XMS_ITS | Encounter Summary ---
Author Organization [facility] Address [address] [place] [address] Care Team Providers Care Dry Boss Name Role Phone Unavailable Primary Care Provider Unavailabl e Encounter Details Date Type Department Care Team (Late st Contact Info) Description 03/03/2024 Clinical Communication Department of Obstetrics and Gynecology in [address] [address] Cami Culp M.D. [address] [place] [address] Social History Tobacco Use Types Packs/Day Years Used Date Smoking Tobacco: Never Smokeless Tobacco: Never Alcohol Use Standard Drinks/Week Comments Not Currently [...] Orientation Straight 06/21/2023 8: 16 PM CDT documented as of this encounter Miscellaneous Notes * Telephone Encounter - Cami Culp M.D. - 03/09/2024 10:24 AM CDT Noted. Thanks! * Telephone Encounter - Rajani Cristina R.N. - 03/04/2024 9:14 AM CDT Called patient and she was able to get into [facility] yesterday and have this taken care off. * Telephone Encounter - Cami Culp M.D. - 03/03/2024 7:29 PM CDT Eduarda is a [place] patient who presented to the [place] ED with abnormal bleeding and ultrasound findings concerning for retained products of conception. She was going to try to get in to [place] for management of this, but Dr. Mejia was involved in her care in the ED in [place]. Please give Eduarda a call to make sure this has been taken care of in [place]. If not we will need to get her into [place]. Thanks! Her phone number is [phone]. documented in this encounter Plan of Treatment Not on file documented as of this encounter Visit Diagnoses Not on filedocumented in this encounter Additional Health Concerns Assessment Noted Time PHQ-9 Depression Total Score: 3 07/22/20 23 9:00 AM CDT documented as of this encounter
[2024-03-23 11:25] LABS: Clue Cells <20% Clue Cells Seen (None Seen); Trichomonas No Trichomonas Seen (None Seen); Yeast No Yeast Seen (None Seen)
== END 2024-03-23 10:50 | disposition home or self-care (01) ==
LOC: NFLDREF 10:50
PROVIDERS: PCP Family Medicine; Visit Provider Obstetrics & Gynecology
DX: N89.8 Other specified noninflammatory disorders of vagina (principal)
CPT/HCPCS: 87210

== ENCOUNTER 2024-04-29 11:51 | Outpatient (CLI) | payer BC, SELFPAY ==
--- OUTSIDE RECORDS SUMMARY | 2024-04-29 11:54 | XMS_ITS | Clinical Summary ---
Author Organization [facility] Address [address] [place] [address] Care Team Providers Care Credit Control Clerk Name Role Phone Unavailable Primary Care Provider Unavailabl e Source Comments Patient records contain information from all sites at [facility]. For routine questions regarding patient records, call [phone] during business hours, M-F 8:00 AM - 5:00 PM Central Time. Record requests for emergency care only can be directed to [phone] at any time.[facility] Allergies No known active allergies Medications Medication Sig Dispensed Refills Start Date End Date Status [id number]-Gs-nhtd-FA (VINATE ONE) 60 mg iron-1 mg per tablet Take 1 tablet by mouth daily. 90 tablet 3 08/20/2023 Active miconazole (MICOTIN) 2 % vaginal cream Insert 1 applicator into the vagina at bedtime. 45 g 11/16/2023 Active Active Problems No known active problems Encounters Date Type Department Care Team Description 03/03/2024 Clinical Communication Department of Obstetrics and Gynecology in [address] [place] [id number] Cami Culp M.D. from Last 3 Months [...] 27) 3 07/22 Nutrition Answer Date Recorded On average, how many serving s of [...] living situation today? I have a [facility] place to live 06/21/2023 Education Answer Date Recorded What is the highest level of school you have completed or the highest degree you have received? High school graduate 07/22/2023 Sex and Gender Information Value Date Recorded Sex Assigned at Female 06/21/2023 8:16 PM CDT Gender Identity Female 06/21/2023 8:16 PM CDT Sexual Orientation Straight 06/21/2023 8: 16 PM CDT Last Filed Vital Signs Vital Sign Reading Time Taken Comments Blood Pressure 122/83 11/16/2023 3:23 PM PATIENT [facility] MGR Pulse 93 11/16/2023 3:23 PM PATIENT [facility] MGR Temperature 37.2 ??C (99 ??F) 08/20/2023 3:06 PM CDT Respiratory Rate - - Oxygen Saturation 100% 10/16/2023 2:09 PM PATIENT [facility] MGR Inhaled Oxygen Concentration - - Weight 76.9 kg (169 lb 8 oz) 11/16/2023 3:23 PM PATIENT [facility] MGR Height 156 cm (5' 1.42) 11/16/2023 3:23 PM PATIENT [facility] MGR Body Mass Index 31.59 11/16/2023 3:23 PM PATIENT [facility] MGR Plan of Treatment Health Maintenance Due Date Last Done Comments Hepatitis B Vaccines (1 of 3 - 19+ 3-dose series) 2014 COVID-19 Vaccine (2022- season) 2023 Depression Screening (Annual PHQ-2) 10/26/2023 Influenza Vaccine (#1) 2024 , 08/13/2022, 07/23/2021, Additional history exists Cervical Cancer Screening 07/22/2026 07/22/2023 DTaP,Tdap,and Td Vaccines (3 - Td or Tdap) 11/16/2033 11/16/2023, 06/01/2008 HPV Vaccines Completed 12/13/2008, 11/26, 08/10/2008, Additional history exists HIV Screening Completed 07/22/2023 Hepatitis C Screening Completed 07/22/2023 Pneumococcal vaccine (0-64 years) Aged Out No [...] S Negative Negative 07/23/2023 8:34 AM CDT [facility] Comment:Nvlkhb-ip-rxebfb rat io is <1.00. Blood (Blood, Venous) 07/22/2023 10:41 AM CDT 07/23/2023 6:54 AM CDT Kary Holguin APRN C.N.P., M.S.N. LAB MICROBIOLOGY - BLOOD ORDERABLES [facility] [address] [place] [address] [facility] [address] [place] [address] * HIV-1/-2 Ag and Ab Scrn, Plasma [...] 10:41 AM CDT 07/22/2023 6:24 PM CDT Sheila Hughes APRN.N.P., M.S.N. LAB MICROBIOLOGY - BLOOD ORDERABLES [facility] [address] [place] [address], [facility] in [address] [address] * ThinPrep Screen HPV Reflex (07/22/2023 9:43 [...] APRN, C.N.P., M.S.N. LAB PAP PATHDX ORDERABLES [facility] [address] [place] [address], [place] [facility] [address] [facility] [address] [place] [id number] from Last 3 Months or Most Recently Relevant to Health Maintenance
--- OUTSIDE RECORDS SUMMARY | 2024-04-29 11:54 | XMS_ITS | Referral Summary ---
Author Organization [facility] Address [address] [place] [address] Care Team Providers Care Marketing Secretary Name Role Phone Unavailable Primary Care Provider Unavailabl e Source Comments Patient records contain information from all sites at [facility]. For routine questions regarding patient records, call [phone] during business hours, M-F 8:00 AM - 5:00 PM Central Time. Record requests for emergency care only can be directed to [phone] at any time.[facility] Encounters Date Type Department Care Team Description 03/03/2024 Clinical Communication Department of Obstetrics and Gynecology in [address] [place] [phone] Cami Culp M.D. from Last 3 Months Allergies No known active allergies Medications Medication Sig Dispensed Refills Start Date End Date Status xoqbtxv-Oh-jeid-FA (VINATE ONE) 60 mg iron-1 mg per tablet Take 1 tablet by mouth daily. 90 tablet 3 08/20/2023 Active miconazole (MICOTIN) 2 % vaginal cream Insert 1 applicator into the vagina at bedtime. 45 g 11/16/2023 Active Active Problems No known active problems Immunizations Name Administration [...] Comments Blood Pressure 122/83 11/16/2023 3:23 PM RESIDENT CARE COORDINATOR Pulse 93 11/16/2023 3:23 PM RESIDENT CARE COORDINATOR Temperature 37.2 ??C (99 ??F) 08/20/2023 3:06 PM CDT Respiratory Rate - - Oxygen Saturation 100% 10/16/2023 2:09 PM RESIDENT CARE COORDINATOR Inhaled Oxygen Concentration - - Weight 76.9 kg (169 lb 8 oz) 11/16/2023 3:23 PM RESIDENT CARE COORDINATOR Height 156 cm (5' 1.42) 11/16/2023 3:23 PM RESIDENT CARE COORDINATOR Body Mass Index 31.59 11/16/2023 3:23 PM RESIDENT CARE COORDINATOR Plan of Treatment Not on file Procedures [...] S Negative Negative 07/23/2023 8:34 AM CDT [facility] Comment:Kcrbmn-tb-ygwqsm rat io is <1.00. Blood (Blood, Venous) 07/22/2023 10:41 AM CDT 07/23/2023 6:54 AM CDT Kary Holguin APRN, C.N.P., M.S.N. LAB MICROBIOLOGY - BLOOD ORDERABLES [facility] [address] [place] [address] [facility] [address] [place] [address] * HIV-1/-2 Ag and Ab Scrn, Plasma (07/22/2023 10:41 AM CDT) Pathologist [facility] HIV Ag/Ab Scrn, P Negative Negative 07/23/2023 [...] MICROBIOLOGY - BLOOD ORDERABLES Performing Organization Address City/[facility] [address]/ZIP Co de Phone Number [facility] [address] [place] [address], [place] [facility] [place] [address] [place] [address] * ThinPrep Screen HPV Reflex (07/22/2023 9:43 [...] APRN, C.N.P., M.S.N. LAB PAP PATHDX ORDERABLES [facility] [address] [place] [address], [place] [facility] [address] [address] from Last 3 Months or Most Recently Relevant to Health Maintenance
--- OUTSIDE RECORDS SUMMARY | 2024-04-29 11:54 | XMS_ITS ---
Author Organization [facility] Address [address] [place] [address] Care Team Providers Care Director Sanitation Bureau Name Role Phone Unavailable Unavailable Unavailable Surgery Details Not on file Complications Check Surgery Details section. Procedure Estimated Blood Loss Check Surgery Details section. Procedure Findings Check Surgery Details section. Procedure Specimens Taken Check Surgery Details section.
--- OUTSIDE RECORDS SUMMARY | 2024-04-29 11:54 | XMS_ITS | Encounter Summary ---
Author Organization [facility] Address [address] [place] [address] Care Team Providers Care Rehabilitation Tech Name Role Phone Unavailable Primary Care Provider Unavailabl e Encounter Details Date Type Department Care Team (Late st Contact Info) Description 03/03/2024 Clinical Communication Department of Obstetrics and Gynecology in [address] [address] Cami Culp M.D. [address] [place] [address] Social History Tobacco Use Types [...] your living situation today? I have a [facility] place to live 06/21/2023 Education Answer Date Recorded What is the highest level of school you have completed or the highest degree you have received? High school graduate 07/22/2023 Comments Yes Sex and Gender Information Value Date Recorded Sex Assigned at Female 06/21/2023 8:16 PM CDT Gender Identity Female 06/21/2023 8:16 PM CDT Sexual Orientation Straight 06/21/2023 8: 16 PM CDT documented as of this encounter Miscellaneous Notes * Telephone Encounter - Cami Culp M.D. - 03/09/2024 10:24 AM CDT Noted. Thanks! * Telephone Encounter - Rajani Cristina RNisha - 03/04/2024 9:14 AM CDT Called patient and she was able to get into [facility] yesterday and have this taken care off. * Telephone Encounter - Cami Culp M.D. - 03/03/2024 7:29 PM CDT Eduarda is a [place] patient who presented to the [place] ED with abnormal bleeding and ultrasound findings concerning for retained products of conception. She was going to try to get in to [place] for management of this, but Dr. Mejia was involved in her care in the ED in [place]. Please give Eduarda a call to make sure this has been taken care of in [place]. If not we will need to get her into [place]. Thanks! Her phone number is [phone]. documented in this encounter Plan of Treatment Not on file documented as of this encounter Visit Diagnoses Not on filedocumented in this encounter Additional Health Concerns Assessment Noted Time PHQ-9 Depression Total Score: 3 07/22/20 23 9:00 AM CDT documented as of this encounter
--- OUTSIDE RECORDS SUMMARY | 2024-04-29 11:54 | XMS_ITS | Clinical Summary ---
Author Organization [facility] Address [place], [place] [address] Care Team Providers Care Light Oil Operator Name Role Phone Karen Meehan DO Primary Care Provider [phone] Allergies No known active allergies Medications Medication Sig Dispensed Refills Start Date End Date Status vitamins-folic acid 1 mg ( RX) tablet Take 1 Tablet by mouth once daily. 08/20/2023 Active norethindrone-eth estradiol, 1-35 mg-mcg, (ORTHO-NOVUM 1/35; NORTREL 1/35) 1-35 mg-mcg tabletIndications:Enco unter for counseling regarding contraception Take 1 Tablet by mouth once daily. 90 Tablet 3 02/29/2024 Active metroNIDAZOLE (FLAGYL) 500 mg tablet TAKE 1 TABLET BY MOUTH TWICE DAILY FOR 7 DAYS 03/23/2024 Active arm brace miscIndications:De Quervain's tenosynovitis, right As directed 1 Each. 03/28/2024 Active Active Problems No known active problems Encounters Date Type Department Care Team Description 03/28/2024 1:10 PM CDT Office Visit [facility] [address] [place] [address] Karen Meehan, Wrist Pain/problem (Right arm/wrist pain, has been ongoing since she was . was told it could be carpal tunnel, has not resolved, has gotten worse. ) 03/28/2024 Travel 03/03/2024 Lab Requisition [facility] [phone] Isha Maher MD 03/01/2024 4:27 PM CDT - 03/01/2024 8:39 PM CDT Emergency [facility] [address] [place] [address] Karissa Phan NP Vaginal bleeding (Primary Dx) Discharge Disposition: Home Self Care 03/01/2024 3:55 PM CDT Office Visit [facility] [address] [place] [address] Navjot Hu PA Vaginal Bleeding (Vaginal delivery on 01/30/24. Vaginal bleeding had started slowing down. Started oral contraceptive on 02/21/24. Since 02/24/24 vaginal bleeding has increased. Filling a maxi pad once every 2 hours. Light lower abdominal cramping. Is seeing some small clots. ) 03/01/2024 Travel 02/29/2024 Nurse Triage [facility] [address] [place] [address] Karen Meehan, DO Vaginal Bleeding 02/26/2024 Telephone [facility] [address] [place] [address] Karen Meehan, DO Medication Management 02/17/2024 10:00 AM CDT Office Visit [facility] [address] [place] [address] Karen Meehan, DO Contraception (patient is interested in starting oral contraceptives) 02/17/2024 Travel 02/01/2024 Lab Requisition [facility] [phone] Isha Maher MD from Last 3 Months Immunizations Name Administration Dates Next Due Hepatitis A (Peds) 12/13/2008,06/01/2008 Human Papilloma Virus Vaccine 12/13/2008, 008,06/01/2008 Influenza, IIV3 (Age 6-35 mos) 08/13/2011 Influenza, IIV3 (Age >=3 years) 08/14/20 17,08/06/2016,08/10/2013,08/15,08/10/2008,09/02/2007 Influenza, IIV4 08/15/2023, 2,07/23/2021,08/13,07/09/2015 Influenza, IIV4 (=>6mos) MDV 07/28/2019 Influenza, Injectable, Mdck, Quadrivalent, W/preservative 08/10/2018 Meningococcal Vaccine (Menactra) 06/01/2008 Meningococcal Vaccine (Menveo) 07/09/2015 Tdap 11/16/2023,06/01/2008 Family History Medical History Relation Name Comments Cancer-colon Mother Hypertension Mother Relation Name Status Comments Mother Social History Tobacco Use Types Packs/Day Years Used Date Smoking Tobacco: Never Smokeless Tobacco: Never Tobacco Cessation:Counseling Given: Yes Alcohol Use Standard Drinks/Week Comments Yes 0 (1 standard drink = 0.6 oz pur e alcohol) once monthly PHQ-2 Answer Date Recorded PHQ-2 TOTAL SCORE 0 02/17/2024 [facility] - Occupational Stress [...] Outcome GA Total Labor Labor/2nd/3rd Weight Sex Type Anes PTL Jaye A1 A5 Name Clin 01/29 Term 39w 4d 3.59 kg (7 lb 14.5 oz) M Vag Living 3 7 [place] Last Filed Vital Signs Vital Sign Reading Time Taken Comments Blood Pressure 113/72 03/28/2024 1:25 PM CDT Pulse 85 03/28/2024 1:25 PM CDT Temperature 36.5 ??C (97.7 ??F) [...] CDT Isha Maher MD LAB BILL ONLY [facility] LAB[facility]-CENTRAL LABORATORY [address] [place] [address], * PATH TISSUE EXAM (03/03/2024 2:03 PM CDT) Case Report Pathology Report ?Case: [id number] ? Authorizing Provider: ??Isha Maher MD ?? Collected: ? 03/03/2024 1403 ? Ordering Location: ? [facility] ?Received: ?03/04/202425 ? Pathologist: ? Adrian Farnsworth MD ? Specimen: ?Retained Placenta ? 03/08/2024 1:58 PM CDT [facility]- ENTRAL LABORATORY Final Diagnosis A) UTERINE CONTENTS, CURETTAGE: 1. Degenerating implantation site and chorionic villi consistent with ?clinical impression of retained intrauterine placenta 2. Negative for abnormal trophoblastic proliferation and malignancy 03/08/2024 1:58 PM CDT [facility] ENTRAL LABORATORY Clinical Information Possible retained placenta 03/08/2024 1:58 PM CDT [facility] EN[facility] LAB[facility]AT[facility] Gross Description A) Received in formalin, labeled with the patient's name and retained placenta, is a 3 x 3 x 0.5 cm aggregate of morcellated solomon tissue. The specimen is entirely submitted in 2 cassettes. JPW 03/04/2024 03/08/2024 1:58 PM CDT [facility] ENTRAL LABORATORY Microscopic Description The final diagnosis is based on microscopic examination of appropriate sections of all specimens. 03/08/2024 1:58 PM CDT [facility] ENTRAL LABORATORY Additional Information Interpreted at [facility], Central Laboratory - [address] [address] 03/08/2024 1:58 PM CDT [facility] Other (Retained Placenta) 03/03/2024 2:03 PM CDT 03/04/2024 8:25 AM CDT Isha Maher MD PATHOLOGY/CYTOLOG Y [facility] LABORATORY-CENTRAL LABORATORY [address] [place] [address], [place] * US PELVIS COMPLETE TA (03/01/2024 [...] 11.0 thou/cu mm 03/01/2024 5:09 PM CDT [facility] RED BLOOD COUNT 4.15 4.00 - 5.20 mil/cu mm 03/01/2024 5:09 PM CDT [facility] HEMOGLOBIN 12.1 12.0 - 16.0 g/dL 03/01/2024 5:09 PM CDT [facility] HEMATOCRIT 36.2 33.0 - 51.0 % 03/01/2024 5:09 PM [facility] MCV 87 80 - 100 fL 03/01/2024 5:09 PM [facility] MCH 29.2 26.0 - 34.0 pg 03/01/2024 5:09 PM [facility] MCHC 33.4 32.0 - 36.0 g/dL 03/01/2024 5:09 PM [facility] RDW 12.8 11.5 - 15.5 % 03/01/2024 5:09 PM [facility] PLATELET COUNT 297 140 - 440 thou/cu mm 03/01/2024 5:09 PM [facility] MPV 9.3 6.5 - 11.0 fL 03/01/2024 5:09 PM [facility] % NEUT 59.8 % 03/01/2024 5:09 PM [facility] % LYMPH 32.9 % 03/01/2024 5:09 PM [facility] % MONO 5.6 % 03/01/2024 5:09 PM [facility] % EOS 1.0 % 03/01/2024 5:09 PM [facility] % BASO 0.7 % 03/01/2024 5:09 PM [facility] ABSOLUTE NEUTROPHILS 4.6 1.7 - 7.0 thou/cu mm 03/01/2024 5:09 PM [facility] ABSOLUTE LYMPHOCYTES 2.5 0.9 - 2.9 thou/cu mm 03/01/2024 5:09 PM [facility] ABSOLUTE MONOCYTES 0.4 <0.9 thou/cu mm 03/01/2024 5:09 PM [facility] ABSOLUTE EOSINOPHILS 0.1 <0.5 thou/cu mm 03/01/2024 5:09 PM [facility] ABSOLUTE BASOPHILS 0.1 <0.3 thou/cu mm 03/01/2024 5:09 PM [facility] Blood BLOOD SPECIMEN / Unknown Venipuncture / Unknown 03/01/2024 4:57 PM CDT 03/01/2024 5:06 PM CDT Karissa Phan NP HEMATOLOGY [facility] [address] [place] [address] * TYPE & SCREEN (03/01/2024 4:57 PM CDT) ABORH A Rh Positive 03/01/2024 5:48 PM CDT [facility] BLOOD BANK ANTIBODY SCREEN Negative Negative 03/01/2024 5:48 PM CDT [facility] BLOOD BANK SPECIMEN EXPIRATION DATE/TIME 03/04/24 23:59 03/01/2024 5:48 PM CDT [facility] BLOOD BANK Blood BLOOD SPECIMEN / Unknown Venipuncture / Unknown 03/01/2024 4:57 PM CDT 03/01/2024 5:06 PM CDT Karissa Phan NP BLOOD BANK Performing Organization Address City/[facility]/ZIP Co de Phone Number [facility] BLOOD BANK [address] [place] [address] * C-REACTIVE PROTEIN (03/01/2024 4:57 PM CDT) C-REACTIVE PROTEIN <0.3 <0.5 mg/dL 03/01/2024 5:28 PM CDT [facility] Blood BLOOD SPECIMEN / Unknown Venipuncture / Unknown 03/01/2024 4:57 PM CDT 03/01/2024 5:06 PM CDT Karissa Phan NP CHEMISTRY Performing Organization Address City/[facility]/ZIP Co de Phone Number [facility] [address] [place] [address] * PROTIME-INR (03/01/2024 4:57 PM CDT) INR 1.0 <1.3 03/01/2024 5:26 PM T [facility] PROTIME 10.8 10.3 - 12.3 sec 03/01/2024 5:26 PM [facility] Blood BLOOD SPECIMEN / Unknown Venipuncture / Unknown 03/01/2024 4:57 PM CDT 03/01/2024 5:06 PM CDT [facility] LABORATORY - 03/01/2024 5:26 PM [...] is on UFH. Karissa Phan NP HEMATOLOGY [facility] [address] [place] [address] * (ABNORMAL) COMP METABOLIC PANEL (03/01/2024 4:57 PM CDT) SODIUM 138 136 - 145 mmol/L 03/01/2024 5:26 PM [facility] POTASSIUM 4.0 3.5 - 5.1 mmol/L 03/01/2024 5:26 PM [facility] CHLORIDE 103 98 - 107 mmol/L 03/01/2024 5:26 PM [facility] CO2,TOTAL 25 22 - 29 mmol/L 03/01/2024 5:26 PM [facility] ANION GAP 10 5 - 18 03/01/2024 5:26 PM [facility] GLUCOSE 108(H) 70 - 99 mg/dL 03/01/2024 5:26 PM [facility] CALCIUM 8.9 8.6 - 10.0 mg/dL 03/01/2024 5:26 PM CDT [facility] BUN 10 6 - 20 mg/dL 03/01/2024 5:26 PM [facility] CREATININE 0.63 0.50 - 0.90 mg/dL 03/01/2024 5:26 PM [facility] BUN/CREAT RATIO 16 10 - 20 5:26 PM T [facility] eGFR >90 >90 mL/min/1.7 3m2 03/01/2024 5:26 PM T [facility] Comment:As of 2022, eG FR is calculated by the CKD-EPI creatinine equation without race adjustment. ??eGFR can be influenced by muscle mass, exercise, and diet. ??The reported eGFR is an estimation only and is only applicable if the renal function is stable. ALBUMIN 4.2 4.0 - 4.9 g/dL 03/01/2024 5:26 PM T [facility] PROTEIN,TOTAL 6.7 6.0 - 8.0 g/dL 03/01/2024 5:26 PM [facility] BILIRUBIN,TOTAL 0.3 0.0 - 1.2 mg/dL 03/01/2024 5:26 PM [facility] ALK PHOSPHATASE 85 35 - 104 IU/L 03/01/2024 5:26 PM [facility] ALT (SGPT) 13 10 - 35 IU/L 03/01/2024 5:26 PM T [facility] AST (SGOT) 22 10 - 35 IU/L 03/01/2024 5:26 PM [facility] Blood BLOOD SPECIMEN / Unknown Venipuncture / Unknown 03/01/2024 4:57 PM CDT 03/01/2024 5:06 PM CDT Karissa Phan PROSTHETIC DENTIST CHEMISTRY [facility] [address] [place] [address] * PATH TISSUE EXAM PLACENTA (01/30/2024 7:20 PM CDT) Case Report Pathology Report ?Case: [id number] ? Authorizing Provider: ??Isha Maher MD ?? Collected: ? 01/30/2024 1920 ? Ordering Location: ? [facility] ?Received: ?02/01/2024 1415 ? Pathologist: ? Lucia Ludwig MD ? Specimen: ?Placenta ? 02/03/2024 9:17 AM CDT [facility] LABORATORY-C ENTRAL LABORATORY Final Diagnosis A) PLACENTA, [...] ?No diagnostic abnormalities identified 02/03/2024 9:17 AM [facility] [employer] LABORATORY-C ENTRAL LABORATORY Comment The patient's clinical [...] bleeding and premature delivery. 02/03/2024 9:17 AM [facility]-C ENTRAL LABORATORY Clinical Information / Indications or [...] ??no ?? Smoking ??no 02/03/2024 9:17 AM CDT [facility] [employer] LABORATORY-C ENTRAL LABORATORY Gross Description A) Received fresh [...] cut section, no discrete lesions are identified. ??Sheeter Waxer Operator sections are submitted as follows: 1. ??Proximal and distal umbilical cord 2. ??2 sections through area of cord hemorrhage 3. ??Membranes 4. ??Insertion point of cord 5, 6. ??Full-thickness sections through central portion of placenta TRB 02/01/2024 02/03/2024 9:17 AM CDT [facility] Microscopic Description The final diagnosis is based on microscopic examination of appropriate sections of all specimens. 02/03/2024 9:17 AM CDT [facility] ENTRAL LABORATORY Additional Information Interpreted at [facility], Central Laboratory - [address], [place] [address] 02/03/2024 9:17 AM T [facility] LABORAT[facility] Tissue SPECIMEN FROM PLACENTA / Unknown 01/30/2024 7:20 PM CDT 02/01/2024 2:15 PM CDT Isha Maher MD PATHOLOGY/[facility]OLOG [facility] [address] [place] [address], from Last 3 Months Care Teams Light Oil Operator Relationship Specialty Start Date End Date Karen Meehan DO [address] [place] [address] PCP - General Family Practice 12/09/23
[2024-04-29 16:02] LABS: Chlamydia DNA Amplified* NOT DETECTED (No Detected); GC DNA Amplified* NOT DETECTED (No Detected)
== END 2024-04-29 11:52 | disposition home or self-care (01) ==
PROVIDERS: PCP Family Medicine; Visit Provider Registered Nurse
DX: N89.8 Other specified noninflammatory disorders of vagina (principal); R10.11 Right upper quadrant pain
CPT/HCPCS: 84450; 84460; 87491; 87591

== ENCOUNTER 2025-01-25 10:28 | Outpatient (CLI) | payer OTHER, SELFPAY | END 2025-01-25 10:29 | disposition home or self-care (01) | PROVIDERS: PCP Family Medicine; Visit Provider Family Medicine | DX: S29.9XXA Unspecified injury of thorax, initial encounter (principal); V43.62XA Car passenger injured in collision with other type car in traffic accident, initial encounter; Y92.410 Unspecified street and highway as the place of occurrence of the external cause | CPT/HCPCS: A0425; A0427 ==

== ENCOUNTER 2025-01-25 11:01 | Emergency (ER) | payer OTHER, BC, SELFPAY ==
[2025-01-25] VITALS (8 sets, daily range): BP systolic 113–127; BP diastolic 69–86; PULSE 90–102; RESP 12–20; TEMP 37.3; O2SAT 99–100; BMI 33.8
--- OUTSIDE RECORDS SUMMARY | 2025-01-25 11:05 | XMS_ITS | Clinical Summary ---
Author Organization [facility] Address [address] [place] [address] Care Team Providers Care Lead Atg Developer Name Role Phone Unavailable Primary Care Provider Unavailabl e Source Comments Patient records contain information from all sites at [facility]. For routine questions regarding patient records, call [phone] during business hours, M-F 8:00 AM - 5:00 PM Central Time. Record requests for emergency care only can be directed to [phone] at any time.[facility] Allergies No known active allergies Medications * This document contains information received from the source organization and may not represent a complete record from that organization. tggafkg-Fl-fjib -FA (VINATE ONE) 60 mg iron-1 mg per tablet Take 1 tablet by mouth daily. 90 tablet 3 3 Active miconazole (MICOTIN) 2 % vaginal cream Insert 1 applicator into the vagina at bedtime. 45 g 4 Active Active Problems No known active problems Immunizations Immunization Administration Dates Next Due Tdap 11/16/2023 Family History Medical History Relation Name Comments No Known Problems Brother Sunny No Known Problems Father Armaan Cardiac pacemaker Maternal Grandfather Ori Cardiac pacemaker Maternal Grandmother Holley No Known Problems Mother Sharda No Known Problems Sister 1 Liu No Known Problems Sister 2 Rona Relation Name Status Comments Brother Sunny Alive Father Armaan Alive Maternal Grandfather Ori Maternal Grandmother Holley Mother Sharda Alive Paternal Grandfather Sunny Paternal Grandmother Radha [...] your living situation today? I have a [facility] place to live 06/21/2023 Education Answer Date Recorded What is the highest level of school you have completed or the highest degree you have received? High school graduate 07/22/2023 Comments No Sex and Gender Information Value Date Recorded Sex Assigned at Female 06/21/2023 8:16 PM CDT Legal Sex Female 2:43 PM CDT Gender Identity Female 06/21/2023 8:16 PM CDT Sexual Orientation Straight 06/21/2023 8: 16 PM CDT Occupation Industry Job Start Date Job End Date enciso Not on file Not on file Not on file Last Filed Vital Signs Vital Sign Reading Time Taken Comments Blood Pressure 122/83 11/16/2023 3:23 PM GENERAL EDUCATION PROFESSOR Pulse 93 11/16/2023 3:23 PM GENERAL EDUCATION PROFESSOR Temperature 37.2 C (99 F) 08/20/2023 3:06 PM CDT Respiratory Rate - - Oxygen Saturation 100% 10/16/2023 2:09 PM GENERAL EDUCATION PROFESSOR Inhaled Oxygen Concentration - - Weight 76.9 kg (169 lb 8 oz) 11/16/2023 3:23 PM GENERAL EDUCATION PROFESSOR Height 156 cm (5' 1.42) 11/16/2023 3:23 PM GENERAL EDUCATION PROFESSOR Body Mass Index 31.59 11/16/2023 3:23 PM GENERAL EDUCATION PROFESSOR Plan of Treatment Health Maintenance Due Date Last Done Comments Hepatitis B Vaccines (1 of 3 - 19+ 3-dose series) 2014 COVID-19 Vaccine ( season) 2024 Influenza Vaccine (#1) 2024 , 08/13/2022, 07/23/2021, Additional history exists Depression Screening (Annual PHQ-2) 10/26/2024 Cervical/Vaginal Cancer Screening 07/22/2026 07/22/2023 DTaP,Tdap,and Td Vaccines (3 - Td or Tdap) 11/16/2033 11/16/2023, 06/01/2008 HPV Vaccines Completed 12/13/2008, 11/26, 08/10/2008, Additional history exists HIV Screening Completed 07/22/2023 Hepatitis C Screening Completed 07/22/2023 IPV Vaccines Aged Out No longer eligi ble based on patient's age to complete this topic Pneumococcal vaccine (0-49 years) Aged Out No longer eligible based [...] S Negative Negative 07/23/2023 8:34 AM CDT [facility] Comment:Sztfdb-pi-hvzktt rat io is <1.00. Blood (Blood, Venous) 07/22/2023 10:41 AM CDT 07/23/2023 6:54 AM CDT us Kary Holguin APRN C.N.P., M.S.N. LAB MICROBIO LOGY - BLOOD ORDERABLES Final Result [facility] [address] [place] [address] [facility] [address] [address] * HIV-1/-2 Ag and Ab Scrn, Plasma [...] 10:41 AM CDT 07/22/2023 6:24 PM CDT us Kary Holguin APRN, C.N.P., M.S.N. LAB MICROBIO LOGY - BLOOD ORDERABLES Final Result [facility] [address] [place] [address], [facility] [place] [address] * ThinPrep Screen HPV Reflex (07/22/2023 9:43 [...] 3:25 PM CDT [facility] Interpretation Cervical/Endocervi lucila (ThinPrep): Satisfactory for Evaluation Negative for Intraepithelial Lesion or Malignancy 07/24/2023 3:25 PM CDT [facility] Thin Prep Vial (Cervix/Endocerv ix) 07/22/2023 9:43 AM CDT 07/23/2023 6:25 AM CDT Kary Holguin APRN C.N.P., M.S.N. LAB PAP PATH DX ORDERABLES Final Result [facility] [address] [place] [address], [place] [facility] [address] [address] from Last 3 Months or Most Recently Relevant to Health Maintenance Insurance [facility] [place] [address]
--- OUTSIDE RECORDS SUMMARY | 2025-01-25 11:05 | XMS_ITS | Clinical Summary ---
Author Organization [email or web address] [facility] Address [facility] [place] [address] Care Team Providers Care Acid Cutter Name Role Phone Karen Meehan Primary Care Provider [phone] Allergies No known active allergies Medications vitamins-folic acid 1 mg ( RX) tablet Take 1 Tablet by mouth once daily. 3 Active norethindrone-eth estradiol, 1-35 mg-mcg, (ORTHO-NOVUM 1/35; NORTREL 1/35) 1-35 mg-mcg tabletIndications :Encounter for counseling regarding contraception Take 1 Tablet by mouth once daily. 90 Tablet 3 4 Active metroNIDAZOLE (FLAGYL) 500 mg tablet TAKE 1 TABLET BY MOUTH TWICE DAILY FOR 7 DAYS 4 Active arm brace miscIndications:D e Quervain's tenosynovitis, right As directed 1 Each. 4 Active methylPREDNISolon e (Medrol (Dre)) 4 mg tabletIndications :Right wrist tendinitis Take by mouth as instructed per packaging. 21 Tablet 5 Active Active Problems No known active problems Encounters Date Type Department Care Team Description 01/22/2025 Travel 01/13/2025 3:00 PM CDT Ancillary Procedure [facility] [address] [place] [address] 01/13/2025 2:30 PM CDT Office Visit [facility] [address] [facility] [place] [address] Jazmine Roque PA Wrist Pain/problem (Right wrist pain-has a brace but it doesn't help-hard to do job) 01/13/2025 Travel from Last 3 Months Immunizations Immunization Administration Dates Next Due Hepatitis A (Peds) 12/13/2008,06/01/2008 Human Papilloma Virus Vaccine 12/13/2008, 008,06/01/2008 Influenza, IIV3 (Age 6-35 mos) 08/13/2011 Influenza, IIV3 (Age >=3 years) 08/14/20 17,08/06/2016,08/10/2013,08/15,08/10/2008,09/02/2007 Influenza, IIV4 08/15/2023,,07/23/2021,08/13,07/09/2015 Influenza, IIV4 (=>6mos) MDV 07/28/2019 Influenza, Injectable, Mdck, Quadrivalent, W/preservative 08/10/2018 MENINGOCOCCAL VACCINE 2 VIAL 2MO-55YO (MENVEO) 07/09/2015 Meningococcal Vaccine (Menactra) 06/01/2008 Tdap 11/16/2023,06/01/2008 Family History Medical History Relation [...] Date Recorded PHQ-2 TOTAL SCORE 0 02/17/2024 [facility] [place] of Occupat ional Health - Occupational Stress Questionnaire Answer Date Recorded Feeling of Stress Not at all 03/16/2019 Exercise Vital Sign Answer Date Recorde d Days of Exercise per Week 4 days 2018 Minutes of Exercise per Session 60 min 03/16/2019 Social Connections Answer Date Recorded Do you often feel lonely or isolated from those around you? 0 02/17/2024 Financial Resource Strain Answer Date R ecorded Difficulty of Paying Living Expenses 3 02/17/2024 Difficulty of Paying Living Expenses Not on file 02/17/2024 Food Insecurity Answer Date Recorded Do you worry your food will run out before you are able to buy more? 1 02/17/2024 Transportation Needs Answer Date Record ed Does lack of transportation keep you from medica l appointments? 1 02/17/2024 Does lack of transportation keep you from work, meetings or getting things that you need? 1 02/17/2024 Housing Stability Answer Date Recorded What is your housing situation today? 1 02/17/2024 Interpersonal Safety Answer Date Record ed Are you being hit, kicked, p ushed or yelled at (see row info)? No 03/01/2024 Interpersonal Safety Abuse 12 - 18 Not on file 03/01/2024 Interpersonal Safety Ambulatory Vulnerability No t on file 03/01/2024 Utilities Answer Date Recorded Do you have trouble paying f or utilities (for example, heat, electricity, water, phone)? 1 02/17/2024 Comments No Sex and Gender Information Value Date Recorded Sex Assigned at Not on file Legal Sex Female 1:44 PM CDT Gender Identity Not on file Sexual Orientation Not on file Obstetrics History Para Term AB IAB SAB Ectopic Multiple Livin g Live Births 1 1 1 1 1 Date Outcome GA Total Labor Labor/2nd/3rd Weight Sex Type Anes PTL Jaye A1 A5 Name Clin 01/29 Term 39w 4d 3.59 kg (7 lb 14.5 oz) M Vag Living 3 7 [place] Last Filed Vital Signs Vital Sign Reading Time Taken Comments Blood Pressure 112/75 01/13/2025 2:39 PM CDT Pulse 86 01/13/2025 2:39 PM CDT Temperature 36.5 C (97.7 F) 03/01/2024 4:36 PM CDT Respiratory Rate 17 03/01/2024 4:36 PM CDT Oxygen Saturation 100% 01/13/2025 2:39 PM CDT Inhaled Oxygen Concentration - - Weight 77.6 kg (171 lb) 01/13/2025 2:39 PM CDT Height 156.2 cm (5' 1.5) 03/01/2024 4:36 PM CDT Body Mass Index 31.79 03/01/2024 4:36 PM CDT Plan of Treatment Upcoming Encounters Date Type Department Care Team (Late st Contact Info) Description 01/26/2025 2:00 PM CDT Office Visit [facility] [address] [place] [address] Karen Meehan, [address] [place] [address] Health Maintenance Due Date Last Done Comments HIV for age 15-65 2010 Hepatitis C screening for age 18-79 2013 Pap test for age 21-65 2016 COVID-19 vaccine series (2023- season) 2024 BMI (ht and wt on same day) for age 18+ 02/16/2025 02/17/2024, 03/16/2019 Depression screening for age 12+ 02/16/2025 02/17/2024, 03/16/2019 Influenza Vaccine (Season Ended) 2025 08/15/2023, 08/13/2022, 07/23/2021, Additional history exists Tetanus booster 11/16/2033 11/16/2023, 06/01/2008 Tdap Completed 11/16/2023, 06/01/2008 Pneumococcal series for age 6-49 Aged Out No longer eligible based on patient's age to complete this topic Procedures Procedure Name Priority Date/Time Associated Diagnosis Comments XR WRIST 3 VIEWS RIGHT Routine 01/13/2025 3:04 PM CDT Right wrist tendinitis from Last 3 Months Results * XR WRIST 3 OR MORE VIEWS RIGHT (01/13/2025 3:04 PM CDT) Anatomical Region Laterality Modality WRISTS, WRIST R Computed Radiogr aphy 01/13/2025 3:46 PM CDT Narrative 01/13/2025 3:46 PM CDT For Patients: As a result of the Century Cures Act, medical imaging exams and procedure reports are released immediately into your electronic medical record. You may view this report before your referring provider. If you have questions, please contact your health care provider. Indication: Right wrist tendinitis Technique: Three views right wrist Comparison: None Findings: Bones: Alignment is normal. No fractures or bone lesions. Joint spaces: Unremarkable. Soft tissues: Unremarkable. Impression: Normal right wrist films. Dictated by Andrew Collins MD @ 01/13/2025 3:46:56 PM (Electronically Signed) Procedure Note Andrew Collins MD - 01/13/2025 For Patients: As a result of the Cures Act, medical imagingexams and procedure reports are released immediately into your electronicmedical record. You may view this report before your referring provider.If you have questions, please contact your health care provider. Indication: Right wrist tendinitis Technique: Three views right wrist Comparison: None Findings: Bones: Alignment is normal. No fractures or bone lesions. Joint spaces: Unremarkable. Soft tissues: Unremarkable. Impression: Normal right wrist films. Dictated by Andrew Collins MD @ 01/13/2025 3:46:56 PM (Electronically Signed) [facility] Final Resu lt from Last 3 Months Insurance [facility] Care Teams Acid Cutter Relationship Specialty Start Date End Date Karen Meehan DO [address] [place] [address] PCP - General Family Practice 12/09/23
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
--- OUTSIDE RECORDS SUMMARY | 2025-01-25 11:34 | XMS_ITS | Clinical Summary ---
Author Organization [facility] Address [facility] [place] [address] Care Team Providers Care Waistline Joiner Name Role Phone Karen Meehan Primary Care Provider [phone]- [phone] Allergies No known active allergies Medications vitamins-folic [...] Travel 01/13/2025 3:00 PM CDT Ancillary Procedure [facility] [address] [place] [address] 01/13/2025 2:30 PM CDT Office Visit [facility] [address] [place] [address] Jazmine Roque PA Wrist Pain/problem (Right wrist [...] Date Recorded PHQ-2 TOTAL SCORE 0 02/17/2024 [facility] [place] of Occupat ional Health - Occupational Stress [...] 14.5 oz) M Vag Living 3 7 [place] Last Filed Vital Signs Vital Sign Reading [...] Description 01/26/2025 2:00 PM CDT Office Visit [facility] [address] [place] [address] Karen Meehan, [address] [place] [address] Health Maintenance Due Date Last Done Comments [...] Resu lt from Last 3 Months Insurance [employer] Care Teams Waistline Joiner Relationship Specialty Start Date End Date Karen Meehan DO [address] [place] [address] PCP - General Family Practice 12/09/23
== END 2025-01-25 12:50 | disposition home or self-care (01) ==
PROVIDERS: Emergency Provider Family Medicine; PCP Family Medicine
DX: R07.89 Other chest pain (principal); V43.62XA Car passenger injured in collision with other type car in traffic accident, initial encounter
CPT/HCPCS: 71046; 99283; 99284; 99291; G0390